=== PATIENT | male | born 1950 | race Caucasian/White ===

== ENCOUNTER → 2016-07-12 | Outpatient (CLI) | payer BC | END | disposition home or self-care (01) | LOC: LABWHC1 09:39 | PROVIDERS: ATTEND Urology | DX: R97.20 Elevated prostate specific antigen [PSA] (principal) | CPT/HCPCS: 36415; 84153 ==

== ENCOUNTER 2016-09-20 18:04 | Inpatient (IN) | payer BC ==
[2016-09-20 18:26] LABS: Glucose,Whole Blood 81 mg/dL (75-99)
[2016-09-20] MEDS ORDERED: SODIUM CHLORIDE 0.9% 1,000 ML IV STA (18:26)
--- NOTE | 2016-09-20 18:34 | ED ---
Neuro HPI - General Chief Complaint: Neuro Symptoms/Deficit Stated Complaint: Lt side numbness head to foot Time Seen by Provider: 09/20/16 18:21 Source: patient Mode of arrival: wheelchair Limitations: no limitations - History of Present Illness Is the patient presenting with stroke symptoms?: No Initial Comments: This 66-year-old white male presents with a complaint of having some left sided numbness. This apparently started just prior to arrival. He states that it was primarily into his left face as well as left arm. He may have felt that in his left foot at one point. He states that his left arm and left foot numbness has resolved at this point but he is still having some left facial numbness. There is no weakness or facial droop. He denies any previous similar type incidents. He denies any injuries or trauma to his head. He also apparently had some slight visual abnormality on his peripheral vision of his left eye that has subsequently resolved. He denies any other visual complaints. He denies any problems with coordination or with speech. He is able to ambulate to the ER without any difficulties. This apparently occurred while at home when trying to glue his [employer] [place]. No other complaints or modifying factors. - Related Data Home Medications: Home Medications Medication Instructions Recorded Confirmed Cholecalciferol [Vitamin D3] 1,000 unit PO BID 09/29/15 09/20/16 Cyanocobalamin [Vitamin B-12] 500 mcg PO DAILY 09/29/15 09/20/16 Docusate [Colace] 100 mg PO HS 09/29/15 09/20/16 Glucosamine Sulfate 500 mg PO BID 09/29/15 09/20/16 Multivitamins, Thera [Multivitamin] 1 tab PO DAILY 09/29/15 09/20/16 Psyllium Husk [Konsyl] 1.04 gm PO DAILY 09/29/15 09/20/16 Ranitidine HCl [Zantac] 150 mg PO BID 09/29/15 09/20/16 Saw [place] 500 mg PO HS 09/29/15 09/20/16 Silodosin [Rapaflo] 8 mg PO HS 09/29/15 09/20/16 Tumeric Extract 1 tab PO HS 09/29/15 09/20/16 Vitamin A 10,000 unit PO DAILY 09/29/15 09/20/16 L.acidoph,Paracasei, B.lactis 1 cap PO DAILY 09/20/16 09/20/16 [Probiotic] Allergies/Adverse Reactions: Allergies Allergy/AdvReac Type Severity Reaction Status Date / Time omeprazole [From Prilosec] Allergy Rash/Hives Verified 09/20/16 19:01 omeprazole magnesium Allergy Rash/Hives Verified 09/20/16 19:01 [From Prilosec] Review of Systems ROS Statement: Those systems with pertinent positive or pertinent negative responses have been documented in the HPI. ROS Other: All systems not noted in ROS Statement are negative. General Exam - General Exam Comments Initial Comments: GENERAL: The patient is well nourished and well hydrated. VITAL SIGNS: Heart rate, blood pressure, respiratory rate reviewed as recorded in nurse's notes. EYES: Pupils are round and reactive. Extraocular movements are intact. No conjunctival / lid redness or swelling. ENT: No external evidence of injury, swelling, or ecchymosis. Airway is patent. Throat is clear. NECK: Nontender. No swelling or evidence of injury. No subcutaneous emphysema. Trachea is midline. No thyroid mass. HEART: Regular rate and rhythm. Good peripheral pulses. LUNGS/CHEST: Breath sounds clear and equal bilaterally. No rales, rhonchi, or wheezes. No ecchymosis, subcutaneous emphysema, or tenderness. ABDOMEN: Abdomen soft without tenderness. No palpable masses or organomegaly. No peritoneal signs. No abdominal wall swelling or ecchymosis. EXTREMITIES: No extremity tenderness. Normal muscle tone and function. No thoracolumbar tenderness. NEUROLOGIC: There is subjective numbness noted to his left face. Strength is intact bilaterally. Cranial nerve exam reveals face is symmetrical, tongue is midline, speech is clear. SKIN: No abrasions or ecchymosis is noted. No induration or masses noted. PSYCHIATRIC: Alert and oriented. Appropriate behavior and judgment. Limitations: no limitations Stroke MDM - Lab Data Result diagrams: 09/20/16 18:20 09/20/16 18:20 Lab Results 09/20/16 09/20/16 09/20/16 Range/Units 18:19 18:20 18:20 WBC 8.7 (3.8-10.6) k/uL RBC 5.37 (4.30-5.90) m/uL Hgb 16.2 (13.0-17.5) gm/dL Hct 48.1 (39.0-53.0) % MCV 89.7 (80.0-100.0) fL MCH 30.1 (25.0-35.0) pg MCHC 33.6 (31.0-37.0) g/dL RDW 13.6 (11.5-15.5) % Plt Count 241 (150-450) k/uL Neutrophils % 71 % Lymphocytes % 20 % Monocytes % 5 % Eosinophils % 1 % Basophils % 1 % Neutrophils # 6.2 (1.3-7.7) k/uL Lymphocytes # 1.7 (1.0-4.8) k/uL Monocytes # 0.4 (0-1.0) k/uL Eosinophils # 0.1 (0-0.7) k/uL Basophils # 0.1 (0-0.2) k/uL PT (9.0-12.0) sec INR (<1.1) APTT (22.0-30.0) sec Sodium (137-145) mmol/L Potassium (3.5-5.1) mmol/L Chloride (98-107) mmol/L Carbon Dioxide (22-30) mmol/L Anion Gap mmol/L BUN (9-20) mg/dL Creatinine (0.66-1.25) mg/dL Est GFR (MDRD) Af Amer (>60 ml/min/1.73 sqM) Est GFR (MDRD) Non-Af (>60 ml/min/1.73 sqM) Glucose (74-99) mg/dL POC Glucose (mg/dL) 81 (75-99) mg/dL POC Glu Planner Scheduler ID Tigre Matias Calcium (8.4-10.2) mg/dL Total Bilirubin (0.2-1.3) mg/dL AST (17-59) U/L ALT (21-72) U/L Alkaline Phosphatase (38-126) U/L Total Creatine Kinase 88 (55-170) U/L CK-MB (CK-2) 2.2 (0.0-2.4) ng/mL CK-MB (CK-2) Rel Index 2.5 Troponin I <0.012 (0.000-0.034) ng/mL Total Protein (6.3-8.2) g/dL Albumin (3.5-5.0) g/dL 09/20/16 09/20/16 Range/Units 18:20 18:20 WBC (3.8-10.6) k/uL RBC (4.30-5.90) m/uL Hgb (13.0-17.5) gm/dL Hct (39.0-53.0) % MCV (80.0-100.0) fL MCH (25.0-35.0) pg MCHC (31.0-37.0) g/dL RDW (11.5-15.5) % Plt Count (150-450) k/uL Neutrophils % % Lymphocytes % % Monocytes % % Eosinophils % % Basophils % % Neutrophils # (1.3-7.7) k/uL Lymphocytes # (1.0-4.8) k/uL Monocytes # (0-1.0) k/uL Eosinophils # (0-0.7) k/uL Basophils # (0-0.2) k/uL PT 10.4 (9.0-12.0) sec INR 1.0 (<1.1) APTT 23.9 (22.0-30.0) sec Sodium 145 (137-145) mmol/L Potassium 4.3 (3.5-5.1) mmol/L Chloride 106 (98-107) mmol/L Carbon Dioxide 26 (22-30) mmol/L Anion Gap 13 mmol/L BUN 19 (9-20) mg/dL Creatinine 1.00 (0.66-1.25) mg/dL Est GFR (MDRD) Af Amer >60 (>60 ml/min/1.73 sqM) Est GFR (MDRD) Non-Af >60 (>60 ml/min/1.73 sqM) Glucose 80 (74-99) mg/dL POC Glucose (mg/dL) (75-99) mg/dL POC Glu Planner Scheduler ID Calcium 10.2 (8.4-10.2) mg/dL Total Bilirubin 0.5 (0.2-1.3) mg/dL AST 33 (17-59) U/L ALT 38 (21-72) U/L Alkaline Phosphatase 59 (38-126) U/L Total Creatine Kinase (55-170) U/L CK-MB (CK-2) (0.0-2.4) ng/mL CK-MB (CK-2) Rel Index Troponin I (0.000-0.034) ng/mL Total Protein 8.0 (6.3-8.2) g/dL Albumin 4.6 (3.5-5.0) g/dL - Medical Decision Making The patient was seen and examined. All diagnostics were reviewed. EKG shows a normal sinus rhythm at a rate of 81. There is some slight T-wave inversions in lead 3 and aVF. The ME interval is 158, QS duration 76, and the QTc interval is 413. The patient had a computed tomography scan of the brain which did not show any acute processes. The laboratory was unremarkable. He states that his numbness has decreased on his face on recheck. He still has some slight tongue numbness. Overall, the possibility of a TIA certainly is likely. Is felt that he benefit from admission to the hospital for further treatment. He is agreeable. Case will be discussed with internal medicine shortly. Past Medical History Past Medical History: Prostate Disorder, Supraventricular Tachycardia (SVT) Additional Past Medical History / Comment(s): back pain History of Any Multi-Drug Resistant Organisms: None Reported Past Surgical History: Ablation, Appendectomy, Cholecystectomy, Hernia Repair Past Psychological History: No Psychological Hx Reported Smoking Status: Former smoker Past Alcohol Use History: None Reported Past Drug Use History: None Reported Course Vital Signs 09/20/16 09/20/16 09/20/16 18:07 18:20 18:35 Temperature 98.4 F Pulse Rate 83 86 69 Respiratory 20 18 20 Rate Blood Pressure 146/85 151/90 138/92 O2 Sat by Pulse 99 98 97 Oximetry 09/20/16 09/20/16 18:50 19:05 Temperature Pulse Rate 82 98 Respiratory 16 18 Rate Blood Pressure 140/91 155/94 O2 Sat by Pulse 97 98 Oximetry Disposition Clinical Impression: TIA (transient ischemic attack), Left sided numbness Disposition: ADMITTED IP TO THIS [facility] Condition: Good Time of Disposition: 20:04 Decision Date: 09/20/16 Decision Time: 20:04
[2016-09-20 18:43] LABS: Basophils # (A) 0.1 k/uL (0-0.2); Basophils % (A) 1 %; CH 30.1; CHCM 33.7; Eosinophils # (A) 0.1 k/uL (0-0.7); Eosinophils % (A) 1 %; HCT 48.1 % (39.0-53.0); HDW 2.88; HGB 16.2 gm/dL (13.0-17.5); Luc # (Auto) 0.23; Luc % (Auto) 3; Lymphocytes # (A) 1.7 k/uL (1.0-4.8); Lymphocytes % (A) 20 %; MCH 30.1 pg (25.0-35.0); MCHC 33.6 g/dL (31.0-37.0); MCV 89.7 fL (80.0-100.0); Mean Platelet Volume 7.4; Monocytes # (A) 0.4 k/uL (0-1.0); Monocytes % (A) 5 %; Neutrophils # (A) 6.2 k/uL (1.3-7.7); Neutrophils % (A) 71 %; RBC 5.37 m/uL (4.30-5.90); RDW 13.6 % (11.5-15.5); WBC 8.7 k/uL (3.8-10.6); WBC (Perox) 8.18
[2016-09-20 18:49] LABS: Partial Thromboplastin Time 23.9 sec (22.0-30.0); Prothrombin Time 10.4 sec (9.0-12.0)
[2016-09-20 18:54] LABS: ALT 38 U/L (21-72); AST 33 U/L (17-59); Alkaline Phosphatase 59 U/L (38-126); Anion Gap 13 mmol/L; Blood Urea Nitrogen 19 mg/dL (9-20); Calcium 10.2 mg/dL (8.4-10.2); Carbon Dioxide 26 mmol/L (22-30); Chloride 106 mmol/L (98-107); Glucose 80 mg/dL (74-99); Non-African American GFR(MDRD) >60 (>60 ml/min/1.73 sqM); Potassium 4.3 mmol/L (3.5-5.1); Sodium 145 mmol/L (137-145); Total Bilirubin 0.5 mg/dL (0.2-1.3)
[2016-09-20 18:59] LABS: Creatine Kinase 88 U/L (55-170)
[2016-09-20 19:13] LABS: Creatine Kinase MB 2.2 ng/mL (0.0-2.4); Troponin I <0.012 ng/mL (0.000-0.034)
--- NOTE | 2016-09-20 19:20 | CT ---
EXAMINATION TYPE: CT brain wo con DATE OF EXAM: 09/20/2016 COMPARISON: NONE INDICATION: Left sided facial abd body numbness DLP: 1180 mGycm, Automated exposure control for dose reduction was used. CONTRAST: None CT of the brain is performed utilizing 3 mm thick sections through the posterior fossa and 3 mm thick sections through the remaining calvarium. Study is performed within 24 hours of arrival to the hosp ital. No abnormal hyperdensity is present to suggest an acute intracranial hemorrhage. No mass lesion is evident. No acute infarcts are evident. Ventricles and sulci are appropriate for the patient age. Paranasal sinuses and mastoid air cells within the [id number] are clear. IMPRESSIONS: 1. Normal CT Brain
[2016-09-20] MEDS ORDERED: ASPIRIN 81 MG CHEW PO STA (19:50)
[2016-09-20] MEDS ORDERED: NON-FORMULARY DRUG (Glucosamine Sulfate 500 MG) PO SCH (21:00)
[2016-09-20] MEDS ORDERED: TUMERIC EXTRACT PO SCH (21:00)
[2016-09-20] MEDS ORDERED: DOCUSATE 100 MG CAP PO SCH (21:00)
[2016-09-20] MEDS ORDERED: NON-FORMULARY DRUG (Saw Palmetto [Saw Palmetto] 500 MG) PO SCH (21:00)
[2016-09-20] MEDS ORDERED: TAMSULOSIN 0.4 MG CAP.ER.24H PO SCH (21:00)
[2016-09-20 21:43] VITALS: BMI 28.0
[2016-09-20] MEDS: CHOLECALCIFEROL 1,000 UNIT TAB PO SCH (21:49)
[2016-09-20] MEDS: FAMOTIDINE 20 MG/2 ML VIAL IV SCH (22:01)
[2016-09-21 06:54] LABS: Cholesterol 170 mg/dL (<200); HDL Cholesterol 51 mg/dL (40-60); Triglycerides 102 mg/dL (<150)
[2016-09-21] MEDS ORDERED: PSYLLIUM HUSK 100% 6 GM PACKET PO SCH (09:00)
[2016-09-21] MEDS ORDERED: LACTOBACILLUS ACIDOPH & BULGAR 1 EACH PACKET PO SCH (09:00)
[2016-09-21] MEDS ORDERED: ENOXAPARIN 40 MG/0.4 ML SYRINGE SQ SCH (09:00)
[2016-09-21] MEDS ORDERED: CYANOCOBALAMIN 500 MCG TAB PO SCH (09:00)
[2016-09-21] MEDS ORDERED: VITAMIN A 10,000 UNIT CAPSULE PO SCH (09:00)
--- NOTE | 2016-09-21 09:15 | US ---
EXAMINATION TYPE: US carotid duplex BILAT DATE OF EXAM: 09/21/2016 COMPARISON: NONE CLINICAL HISTORY: Stenosis. Patient reports numbness of face and left hand EXAM MEASUREMENTS: RIGHT: Peak Systolic Velocity (PSV) cm/sec ----- Right CCA: 79.0 ----- Right ICA: 112.9 ----- Right ECA: 99.0 ICA/CCA ratio: 1.4 RIGHT: End Diastole cm/sec ----- Right CCA: 21.9 ----- Right ICA: 20.8 ----- Right ECA: 10.3 LEFT: Peak Systolic Velocity (PSV) cm/sec ----- Left CCA: 99.1 ----- Left ICA: 84.9 ----- Left ECA: 95.3 ICA/CCA ratio: 0.9 LEFT: End Diastole cm/sec ----- Left CCA: 37.0 ----- Left ICA: 33.1 ----- Left ECA: 0 VERTEBRALS (direction of flow): Right Vertebral: Antegrade Left Vertebral: Antegrade No atherosclerotic changes noted No hemodynamic stenosis Normal (no stenosis)=ICA PSV < 125 cm/s: ratio < 2.0: ICA EDV<40 cm/s. IMPRESSION: Some minimal turbulence flow and mild intimal thickening slightly greater on the left. N o significant flow-limiting stenosis is evident. Criteria for Assigning % of Stenosis / Diameter reduction (Estimation based on the indirect measurements of the internal carotid artery velocities (ICA PSV). 1. Normal (no stenosis)=ICA PSV < 125 cm/s: ratio < 2.0: ICA EDV<40 cm/s. 2. Less than 50% stenosis=ICA PSV < 125 cm/s: ratio < 2.0: ICA EDV<40 cm/s. 3. 50 to 69% stenosis=ICA PSV of 125 to 230 cm/s: ration 2.0 ? 4.0: ICA EDV 40-100 cm/s. 4. Greater than 70% stenosis to near occlusion= ICA PSV > 230 cm/s: ratio > 4.0: ICA EDV > 100 cm/s. 5. Near occlusion= ICA PSV velocities may be low or undetectable: variable ratio and ICA EDV. 6. Total occlusion=unable to detect flow.
[2016-09-21 09:30] VITALS: RESP 16
[2016-09-21] MEDS: CHOLECALCIFEROL 1,000 UNIT TAB PO SCH (10:03)
[2016-09-21] MEDS: FAMOTIDINE 20 MG/2 ML VIAL IV SCH (10:04)
--- NOTE | 2016-09-21 10:22 | ECHOF ---
Referral Reason:Thrombus MEASUREMENTS -------- HEIGHT: 182.9 cm WEIGHT: 93.0 kg BP: 118/76 RVIDd: 3.3 cm (< 3.3) IVSd: 1.2 cm (0.6 - 1.1) LVIDd: 4.5 cm (3.9 - 5.3) LVPWd: 1.1 cm (0.6 - 1.1) IVSs: 1.7 cm LVIDs: 2.7 cm LVPWs: 1.6 cm LA Diam: 3.6 cm (2.7 - 3.8) LAESV Index (A-L): 21.56 ml/m Ao Diam: 3.5 cm (2.0 - 3.7) AV Cusp: 2.5 cm (1.5 - 2.6) MV EXCURSION: 13.015 mm (> 18.000) MV EF SLOPE: 47 mm/s (70 - 150) EPSS: 0.6 cm MV E Leo: 0.90 m/s MV DecT: 181 ms MV A Leo: 0.74 m/s MV E/A Ratio: 1.22 RAP: 5.00 mmHg RVSP: 37.78 mmHg FINDINGS -------- Sinus rhythm. This was a technically good study. The left ventricular size is normal. There is borderline concentric left ventricular hypertrophy. Overall left ventricular systolic function is normal with, an EF between 60 - 65 %. The right ventricle is mildly enlarged. Normal LA size by volume 22+/-6 ml/m2. The right atrium is normal in size. The aortic valve is trileaflet, and appears structurally normal. No aortic stenosis or regurgitation. The mitral valve is normal. Mild tricuspid regurgitation present. There is mild pulmonary hypertension. The right ventricular systolic pressure, as measured by Doppler, is 37.78mmHg. Trace/mild (physiologic) pulmonic regurgitation. The aortic root, ascending aorta and aortic arch are normal. Normal inferior vena cava with normal inspiratory collapse consistent with estimated right atrial pressure of 5 mmHg. The pericardium is normal. CONCLUSIONS -------- 1. Sinus rhythm. 2. The mitral valve is normal. 3. Mild tricuspid regurgitation present. 4. There is mild pulmonary hypertension. 5. The right ventricular systolic pressure, as measured by Doppler, is 37.78mmHg. 6. Trace/mild (physiologic) pulmonic regurgitation. 7. The aortic root, ascending aorta and aortic arch are normal. 8. Normal inferior vena cava with normal inspiratory collapse consistent with estimated right atrial pressure of 5 mmHg. 9. The pericardium is normal. 10. This was a technically good study. 11. The left ventricular size is normal. 12. There is borderline concentric left ventricular hypertrophy. 13. Overall left ventricular systolic function is normal with, an EF between 60 - 65 %. 14. The right ventricle is mildly enlarged. 15. Normal LA size by volume 22+/-6 ml/m2. 16. The right atrium is normal in size. 17. The aortic valve is trileaflet, and appears structurally normal. No aortic stenosis or regurgitation. PHARMACY BENEFIT MANAGER: Karon Arce RDCS
[2016-09-21] MEDS ORDERED: MULTIVITAMINS, THERA 1 EACH TAB PO SCH (12:00)
[2016-09-21 15:45] VITALS: TEMP 98.8
--- NOTE | 2016-09-21 15:52 | P.HPIM ---
History of Present Illness H&P Date: 09/21/16 (Discharge summary as well) 66-year-old gentleman with no previous history of strokes or TIAs comes in to the hospital complains of left-sided facial numbness and left hand numbness that lasted less than 2 hours. Patient states that he did not notice any weakness during the episode. Patient came in to the emergency room was driven by his was evaluated and admitted to the hospital. Patient received a full dose aspirin at that time Patient states he is a lifelong nonsmoker denies having any significant family history of strokes During my evaluation patient states that he has not had any recurrence of symptoms since then. No aphasia no motor weakness has been reported by the patient or his EKG did not reveal any atrial fibrillation Carotid study did not reveal significant stenosis CT of the head was negative for any acute abnormalities Review of Systems All systems: negative (Noted in HPI) Past Medical History Past Medical History: Prostate Disorder, Supraventricular Tachycardia (SVT) Additional Past Medical History / Comment(s): back pain History of Any Multi-Drug Resistant Organisms: None Reported Past Surgical History: Ablation, Appendectomy, Cholecystectomy, Hernia Repair Additional Past Surgical History / Comment(s): leg surgery for broken leg. Past Psychological History: No Psychological Hx Reported Smoking Status: Former smoker Past Alcohol Use History: None Reported Past Drug Use History: None Reported - Past Family History Mother Family Medical History: Dementia Father Family Medical History: Osteoarthritis (OA) Additional Family Medical History / Comment(s): hepatitis C, diverticulitis Brother(s) Family Medical History: Cancer, Coronary Artery Disease (CAD), Respiratory Disorder Additional Family Medical History / Comment(s): CABG, chemical pneumonia, glioblastoma Medications and Allergies Home Medications Medication Instructions Recorded Confirmed Type Cholecalciferol [Vitamin D3] 1,000 unit PO BID 09/29/15 09/20/16 History Cyanocobalamin [Vitamin B-12] 500 mcg PO DAILY 09/29/15 09/20/16 History Docusate [Colace] 100 mg PO HS 09/29/15 09/20/16 History Glucosamine Sulfate 500 mg PO BID 09/29/15 09/20/16 History Multivitamins, Thera [Multivitamin 1 tab PO DAILY 09/29/15 09/20/16 History (formulary)] Psyllium Husk [Konsyl] 1.04 gm PO DAILY 09/29/15 09/20/16 History Ranitidine HCl [Zantac] 150 mg PO BID 09/29/15 09/20/16 History Saw [place] 500 mg PO HS 09/29/15 09/20/16 History Silodosin [Rapaflo] 8 mg PO HS 09/29/15 09/20/16 History Tumeric Extract 1 tab PO HS 09/29/15 09/20/16 History Vitamin A 10,000 unit PO DAILY 09/29/15 09/20/16 History L.acidoph,Paracasei, B.lactis 1 cap PO DAILY 09/20/16 09/20/16 History [Probiotic] Allergies Allergy/AdvReac Type Severity Reaction Status Date / Time omeprazole [From [facility]] Allergy Rash/Hives Verified 09/20/16 19:01 omeprazole magnesium Allergy Rash/Hives Verified 09/20/16 19:01 [From [facility]] Physical Exam Vitals: Vital Signs Temp Pulse Pulse Resp BP BP Pulse Ox 09/21/16 15:13 98.8 F 77 16 134/83 96 09/21/16 11:13 98.7 F 72 16 121/79 97 09/21/16 09:13 97.0 F L 76 16 131/74 96 09/21/16 04:00 98.2 F 65 14 118/76 95 09/20/16 23:42 74 09/20/16 23:40 74 14 135/77 97 09/20/16 21:24 90 16 09/20/16 21:13 97.8 F 90 16 152/98 96 09/20/16 20:35 75 18 145/92 98 09/20/16 20:05 69 16 145/86 98 09/20/16 19:35 92 18 145/83 97 09/20/16 19:20 75 18 144/89 98 09/20/16 19:05 98 18 155/94 98 09/20/16 18:50 82 16 140/91 97 09/20/16 18:35 69 20 138/92 97 09/20/16 18:20 86 18 151/90 98 09/20/16 18:07 98.4 F 83 20 146/85 99 Intake and Output 09/21/16 09/21/16 09/21/16 06:59 14:59 22:59 Intake Total 900 0 Balance 900 0 Intake: Intake, IV Titration 900 Amount Sodium Chloride 0.9% 1, 900 000 ml @ 100 mls/hr IV . Q10H STA Rx#:[id number] Oral 0 Other: # Voids 4 1 1 # Bowel Movements 1 1 Weight 93 kg Physical exam Gen. appearance oriented 3 in no distress Neck is supple no JVD Lungs good air entry clear to auscultation no rhonchi or wheezing Heart S1-S2 heard regular rate and rhythm no murmurs appreciated Abdomen is soft nontender no organomegaly bowel sounds are intact Neurologically cranial nerves II-12 grossly intact no focal motor or sensory deficits noted no dysdiadochokinesia noted. 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 Patient can follow-up with urology on an outpatient basis Patient appears to have a recurrent episode of symptoms we'll need to workup including Holter monitoring. This was discussed with the patient and the family were in agreement we'll discharge the patient home in a stable condition medications at her were aspirin and atorvastatin
--- NOTE | 2016-09-21 17:06 | P.CNNES ---
History of Present Illness Consult date: 09/21/16 Reason for Consult: Patient admitted with left-sided numbness lasting several hours. History of Present Illness: This patient is a 66-year-old right-handed white male who was in his usual state of health until 6 PM yesterday evening. He was at home and apparently had a sudden onset of left-sided numbness affecting his left face and left arm. Apparently he also noted numbness involving the left side of his tongue and lip area. Symptoms came on suddenly and persisted for at least 2 hours. His was concerned and decided to bring him to the emergency room at [facility] for further evaluation. Patient did not experience any facial droop or slurring of his speech during this episode. Patient has a history of supraventricular tachycardia but did not find that his heart was racing at any time during this episode. The patient was seen in the emergency room by Dr. Lentz. The patient was sent for a computed tomography scan of the brain which was reported entirely normal. He separately underwent a carotid Doppler ultrasound today which revealed minimal thickening with no evidence of any flow limiting stenosis in the carotid arteries. On further questioning the patient states his symptoms have completely resolved. They lasted for approximately 2 hours in duration and this morning when he awoke they were gone. He denies any previous history of TIA or stroke. As mentioned he does have a history of supraventricular tachycardia and does see his admissions supervisor if necessary for further treatment. He has not been seen by cardiology since 2010 for this condition. The patient has not been taking any aspirin at home on any regular basis. Given his current history and exam findings this suggests a right hemispheric TIA. We would recommend that he should be on aspirin therapy daily for secondary stroke prevention. The patient underwent a serum cholesterol on admission and it was noted to be 170. He denies any episode of blurred vision or loss of vision during this episode. He did not experience any weakness in the extremities. As noted his speech has remained clear throughout the entire episode. The patient is now admitted and neurology has been consulted for further evaluation and recommendations. Review of Systems Constitutional: Denies chills, Denies fever Eyes: denies blurred vision, denies pain Ears, nose, mouth and throat: Denies headache, Denies sore throat Cardiovascular: Denies chest pain, Denies shortness of breath Respiratory: Denies cough Gastrointestinal: Denies abdominal pain, Denies diarrhea, Denies nausea, Denies vomiting Musculoskeletal: Denies myalgias Integumentary: Denies pruritus, Denies rash Neurological: Reports paresthesias, Denies numbness, Denies weakness Psychiatric: Denies anxiety, Denies depression Endocrine: Denies fatigue, Denies weight change Past Medical History Past Medical History: Prostate Disorder, Supraventricular Tachycardia (SVT) Additional Past Medical History / Comment(s): back pain History of Any Multi-Drug Resistant Organisms: None Reported Past Surgical History: Ablation, Appendectomy, Cholecystectomy, Hernia Repair Additional Past Surgical History / Comment(s): leg surgery for broken leg. Past Psychological History: No Psychological Hx Reported Smoking Status: Former smoker Past Alcohol Use History: None Reported Past Drug Use History: None Reported - Past Family History Mother Family Medical History: Dementia Father Family Medical History: Osteoarthritis (OA) Additional Family Medical History / Comment(s): hepatitis C, diverticulitis Brother(s) Family Medical History: Cancer, Coronary Artery Disease (CAD), Respiratory Disorder Additional Family Medical History / Comment(s): CABG, chemical pneumonia, glioblastoma Medications and Allergies Home Medications Medication Instructions Recorded Confirmed Type Cholecalciferol [Vitamin D3] 1,000 unit PO BID 09/29/15 09/20/16 History Cyanocobalamin [Vitamin B-12] 500 mcg PO DAILY 09/29/15 09/20/16 History Docusate [Colace] 100 mg PO HS 09/29/15 09/20/16 History Glucosamine Sulfate 500 mg PO BID 09/29/15 09/20/16 History Multivitamins, Thera [Multivitamin 1 tab PO DAILY 09/29/15 09/20/16 History (formulary)] Psyllium Husk [Konsyl] 1.04 gm PO DAILY 09/29/15 09/20/16 History Ranitidine HCl [Zantac] 150 mg PO BID 09/29/15 09/20/16 History Saw Clawson 500 mg PO HS 09/29/15 09/20/16 History Silodosin [Rapaflo] 8 mg PO HS 09/29/15 09/20/16 History Tumeric Extract 1 tab PO HS 09/29/15 09/20/16 History Vitamin A 10,000 unit PO DAILY 09/29/15 09/20/16 History L.acidoph,Paracasei, B.lactis 1 cap PO DAILY 09/20/16 09/20/16 History [Probiotic] Allergies Allergy/AdvReac Type Severity Reaction Status Date / Time omeprazole [From Prilosec] Allergy Rash/Hives Verified 09/20/16 19:01 omeprazole magnesium Allergy Rash/Hives Verified 09/20/16 19:01 [From Prilosec] Physical Examination - Vital Signs Vital Signs: Vital Signs Temp Pulse Pulse Resp BP BP Pulse Ox 09/21/16 15:13 98.8 F 77 16 134/83 96 09/21/16 11:13 98.7 F 72 16 121/79 97 09/21/16 09:13 97.0 F L 76 16 131/74 96 09/21/16 04:00 98.2 F 65 14 118/76 95 09/20/16 23:42 74 09/20/16 23:40 74 14 135/77 97 09/20/16 21:24 90 16 09/20/16 21:13 97.8 F 90 16 152/98 96 09/20/16 20:35 75 18 145/92 98 09/20/16 20:05 69 16 145/86 98 09/20/16 19:35 92 18 145/83 97 09/20/16 19:20 75 18 144/89 98 09/20/16 19:05 98 18 155/94 98 09/20/16 18:50 82 16 140/91 97 09/20/16 18:35 69 20 138/92 97 09/20/16 18:20 86 18 151/90 98 09/20/16 18:07 98.4 F 83 20 146/85 99 Intake and Output 09/21/16 09/21/16 09/21/16 06:59 14:59 22:59 Intake Total 900 0 Balance 900 0 Intake: Intake, IV Titration 900 Amount Sodium Chloride 0.9% 1, 900 000 ml @ 100 mls/hr IV . Q10H STA Rx#:[id number] Oral 0 Other: # Voids 4 1 1 # Bowel Movements 1 1 Weight 93 kg - Constitutional General appearance: average body habitus, cooperative - EENT EENT: PERRL, mucous membranes moist - Respiratory Respiratory: lungs clear, normal breath sounds - Cardiovascular Cardiovascular: regular rate, normal S1, normal S2 Extremities: no peripheral edema bilaterally - Gastrointestinal Gastrointestinal: normoactive bowel sounds - Integumentary Integumentary: normal - Neurologic Cranial nerve examination: PERRL, EOMI, VFF, V1/V2/V3 grossly intact, face symmetric, tongue midline, intact gag reflex, intact corneal reflex, normal palatal elevation Speech examination: intact Sensorimotor examination: intact Detailed motor examination: grossly full strength in all extremities Motor examination - right side: 5/5: biceps, triceps, wrist flexion, wrist extension, continuous vulcanizing machine operator, hip flexors, knee extensors, dorsiflexion, toe extension (EHL) , plantarflexion Motor examination - left side: 5/5: biceps, triceps, wrist flexion, wrist extension, continuous vulcanizing machine operator, hip flexors, knee extensors, dorsiflexion, toe extension (EHL) , plantarflexion Detailed sensory examination: intact Reflex and gait examination: intact Reflexes: 1+: ankle, bicep, knee, tricep - Musculoskeletal Musculoskeletal: no pain - Psychiatric Psychiatric: mood/affect appropriate, cooperative Results - Laboratory Findings CBC and BMP: 09/20/16 18:20 09/20/16 18:20 Assessment and Plan (1) TIA (transient ischemic attack) Status: Acute Code(s): G45.9 - TRANSIENT CEREBRAL ISCHEMIC ATTACK, UNSPECIFIED (2) Left sided numbness Status: Acute Code(s): R20.0 - ANESTHESIA OF SKIN (3) Supraventricular tachycardia Status: Acute Code(s): I47.1 - SUPRAVENTRICULAR TACHYCARDIA Plan: This patient is a 66-year-old right-handed white male who was in his usual state of health until yesterday evening. Patient had a transient episode of left-sided paresthesia and numbness involving the left face and left arm. He also noted some numbness in the tongue region and lip region on the left side. The entire episode lasted for about 2 hours and completely resolved yesterday. Apparently he was brought into the emergency room and the symptoms were slowly subsiding. He was seen in the ER by Dr. Lentz who ordered a computed tomography scan of the brain. CAT scan of brain was normal with no evidence of any acute stroke. His NIH stroke scale was noted at that time to be 1.0. Patient was admitted for full stroke evaluation. He underwent a carotid Doppler ultrasound which is negative for any significant carotid artery stenosis. He underwent an echocardiogram of the heart which was also normal. The patient had not been taking any aspirin on any regular basis prior to this event. His clinical history and exam findings are consistent with right hemispheric TIA. We are recommending that he be placed on aspirin 325 mg daily for secondary stroke prevention. We did recommend that he follow up in the outpatient neurology clinic in 3-4 weeks. His neurological exam today is entirely normal. He will inform us if there is any recurrent episode of numbness or weakness following discharge. He is to follow-up with his primary care physician in one week. Overall he seems to be doing well and has a normal neurological exam. As instructed he should follow-up in the neurology clinic in 3-4 weeks for further reevaluation and recommendations at that time. His overall prognosis at this time remains fair. Time with Patient: Greater than 30
[2016-09-21 17:58] VITALS: BP 135/76; PULSE 76
[2016-09-21] MEDS ORDERED: ASPIRIN 325 MG TAB PO SCH (20:15)
--- NOTE | 2016-09-25 08:02 | CDI ---
In responding to this query, please exercise your independent professional judgment. The [facility] Coding Staff and Clinical Documentation Specialists appreciate your assistance in clarifying documentation, maintaining compliance with coding guidelines, accurately documenting patients condition and capturing severity of illness. The fact that a question is asked does not imply that any particular answer is desired or expected. Communication forms are a method of clarifying documentation and are not made part of the Legal Health Record. Thank you in advance for your clarification. Last Revision, June 2015 Brayan Crowe [address] [facility] [place] [address] Documentation Clarification Form Date: 09/25/2016 7:44:00 AM From: Dulce Gallegos Admit Date: 09/20/2016 8:13:00 PM Patient Name: Lavell No Visit Number: [id number] Discharge Date: 09/25/16 Dr. Homer Kitchen 66 year old male, presents with left sided numbness lasting for several hours. Hx of supraventricular tachycardia. CT of brain normal. Carotid doppler US revealed minimal thickening with no evidence of any flow limiting stenosis in carotid arteries. No hx of TIA/CVA. Discharged home on baby aspirin and Atrovastion 40 mg. In your short stay note you stated acute right MCA territory CVA that is transient. The neurologist stated TIA. In your professional opinion, please specify the further the cause of the left sided numbness: Transient ischemic attack Cerbrovascular accident Other (please specify): Etiology unknown or Unable to determine Please document addendum in your HP/DS in order to capture severity of illness and risk of mortality. FYI: Press F11 to launch patient chart Place X here if this finding has no clinical significance, is not applicable or if you are not able to provide any additional documentation. MADISON Barriga, CCS, [facility] Certified I-10 Cashier General/[place]/Cashier General II If you have any questions or concerns please contact Kassy Brown, Field Cane Scale Clerk, Brayan Crowe @ [phone] [facility]
== END 2016-09-21 18:34 | disposition home or self-care (01) | DRG 65 ==
LOC: EC 18:04 → 6SEL 20:13
PROVIDERS: ADMIT Internal Medicine; ATTEND Internal Medicine
DX: I63.511 Cerebral infarction due to unspecified occlusion or stenosis of right middle cerebral artery (principal); I47.1 Supraventricular tachycardia; K52.9 Noninfective gastroenteritis and colitis, unspecified; Z87.891 Personal history of nicotine dependence; Z90.49 Acquired absence of other specified parts of digestive tract; N40.0 Benign prostatic hyperplasia without lower urinary tract symptoms; M54.9 Dorsalgia, unspecified; Z79.899 Other long term (current) drug therapy; Z88.8 Allergy status to other drugs, medicaments and biological substances
CPT/HCPCS: 36415; 70450; 80053; 80061; 82550; 82553; 84484; 85025; 85610; 85730; 93005; 93306; 93880; 96360; 96361; 99285

== ENCOUNTER → 2018-02-08 | Outpatient (CLI) | payer MEDICARE | END | disposition home or self-care (01) | LOC: LABWHC1 15:09 | PROVIDERS: ATTEND Urology | DX: C61 Malignant neoplasm of prostate (principal) | CPT/HCPCS: 36415; 84153 ==

== ENCOUNTER 2018-02-14 06:25 | Day surgery (SDC) | payer MEDICARE ==
[2018-02-07 09:05] VITALS: BMI 29.2
--- NOTE | 2018-02-13 16:35 | P.GSHP ---
History of Present Illness H&P Date: 02/13/18 Chief Complaint: Right inguinal hernia 67-year-old male seen in the office about one month ago. Patient has complaints of a bulge that is increasing in size in the right groin. Mild pain there. History of previous left hernia repair as an infant. History of previous umbilical hernia repair as well without mesh. No nausea or vomiting. No change in bowel habits. Past Medical History Past Medical History: CVA/TIA, Prostate Disorder, Supraventricular Tachycardia ( SVT) Additional Past Medical History / Comment(s): R numbness in back and hip area. In August 2016 TIA, did have some weakness at that time. States if he becomes dehydrated has some issues with SVT. Has not had any problems with SVT for 10 years or so. History of Any Multi-Drug Resistant Organisms: None Reported Past Surgical History: Ablation, Appendectomy, Cholecystectomy, Hernia Repair Additional Past Surgical History / Comment(s): Leg surgery for broken leg. L knee arthroscopy. States had infections after two of his surgeries. Past Anesthesia/Blood Transfusion Reactions: No Reported Reaction Smoking Status: Former smoker - Past Family History Mother Family Medical History: Dementia Father Family Medical History: Osteoarthritis (OA) Additional Family Medical History / Comment(s): hepatitis C, diverticulitis Brother(s) Family Medical History: Cancer, Coronary Artery Disease (CAD), Respiratory Disorder Additional Family Medical History / Comment(s): CABG, chemical pneumonia, glioblastoma Medications and Allergies Home Medications Medication Instructions Recorded Confirmed Type Docusate [Colace] 100 mg PO HS 09/29/15 02/07/18 History Glucosamine Sulfate 500 mg PO BID 09/29/15 02/07/18 History Ranitidine HCl [Zantac] 150 mg PO HS 09/29/15 02/07/18 History Tumeric Extract 1 tab PO HS 09/29/15 02/07/18 History L.acidoph,Paracasei, B.lactis 1 cap PO DAILY 09/20/16 02/07/18 History [Probiotic] Aspirin [Adult Low Dose Aspirin EC] 81 mg PO DAILY #30 tablet. 09/21/16 Rx Ciclopirox (Unknown Dose) 1 applicate TOPICAL DAILY 02/07/18 02/07/18 History Magnesium Gluconate [Magonate] 500 mg PO DAILY 02/07/18 02/07/18 History Multi-Enzyme (Unknown Dose) 1 tab PO DAILY 02/07/18 02/07/18 History Tamsulosin [Flomax] 0.4 mg PO HS 02/07/18 02/07/18 History Allergies Allergy/AdvReac Type Severity Reaction Status Date / Time omeprazole [From Prilosec] Allergy Rash/Hives Verified 02/07/18 08:32 omeprazole magnesium Allergy Rash/Hives Verified 02/07/18 08:32 [From Prilosec] Surgical - Exam Physical exam: General: Well-developed, well-nourished HEENT: Normocephalic, sclerae nonicteric Abdomen: Nontender, nondistended, reducible right inguinal hernia Extremities: No edema Neuro: Alert and oriented Assessment and Plan (1) Inguinal hernia Narrative/Plan: Options discussed in detail with the patient. We'll proceed with laparoscopic da Mar assisted repair with mesh. Possible bilateral. Risks of bleeding, infection, recurrence, bladder and bowel injury, numbness, nerve injury, conversion to an open procedure were discussed with the patient. The patient understands and wishes to proceed. Status: Acute Code(s): K40.90 - UNIL INGUINAL HERNIA, W/O OBST OR GANGR, NOT SPCF RECUR SNOMED Code(s): 967631830
[~2018-02-14 06:25] MED LIST: DEXAMETHASONE SOD PHOSPHATE 10 MG/ML 1 ML VIAL IV ONE; HEPARIN SODIUM,PORCINE 5,000 UNIT/ML 1 ML VIAL SQ ONE; HYDROmorphone 0.5 MG/0.5 ML SYRINGE IVP PRN; LIDOCAINE 1% 20 ML VIAL (10MG/ML) FOR IV START INTRADERMA PRN; MIDAZOLAM 2 MG/2 ML VIAL IV PRN; ONDANSETRON 4 MG/2 ML VIAL IVP ONE; SCOPOLAMINE 1.5MG/72HR PATCH TRANSDERM ONE; ceFAZolin IN SWFI 2 GM/20 ML SYRINGE IVP ONE
[2018-02-14] MEDS: LACTATED RINGERS 1,000 ML IV SCH ×2 (07:02→07:05)
[2018-02-14] MEDS ORDERED: ROCURONIUM BROMIDE 10 MG/ML 10 ML VIAL IV ONE (07:58)
[2018-02-14] MEDS ORDERED: fentaNYL (PF) 50 MCG/ML 2 ML AMP ONE (07:58)
[2018-02-14] MEDS ORDERED: GLYCOPYRROLATE 0.2 MG/ML 2 ML VIAL ONE (07:58)
[2018-02-14] MEDS ORDERED: SUCCINYLCHOLINE CHLORIDE 100 MG/5 ML SYR IV ONE (07:58)
[2018-02-14] MEDS ORDERED: PROPOFOL 10 MG/ML 20 ML VIAL IV ONE (07:58)
[2018-02-14] MEDS ORDERED: LIDOCAINE 1% INJ 10MG/ML (20 ML MDV) ONE (07:58)
[2018-02-14] MEDS ORDERED: MIDAZOLAM 2 MG/2 ML VIAL ONE (07:58)
[2018-02-14] MEDS ORDERED: NEOSTIGMINE 1 MG/ML 10 ML VIAL ONE (07:58)
[2018-02-14] MEDS ORDERED: BUPIVACAIN-EPI 0.25%-1:200,000 30 ML VIAL SQ ONE ×2 (08:37)
[2018-02-14] MEDS ORDERED: HYDROcodone/APAP 5-325MG 1 EACH TAB PO PRN (09:39)
[2018-02-14] MEDS ORDERED: NALOXONE 0.4 MG/ML 1 ML VIAL IV PRN (09:39)
[2018-02-14 09:46] VITALS: TEMP 97
--- NOTE | 2018-02-14 09:55 | P.OP ---
Date of Procedure: 02/14/18 Procedure(s) Performed: PREOPERATIVE DIAGNOSIS: Right inguinal hernia POSTOPERATIVE DIAGNOSIS: Same PROCEDURE: Laparoscopic repair right inguinal hernia with the da Mar robot assistance with mesh SURGEON: Ariana EBL: Minimal ANESTHESIA: General COMPLICATIONS: None OPERATIVE PROCEDURE: Patient was placed in the operating table in the supine position. The patient was placed under general anesthesia. The abdomen was prepped and draped in usual sterile fashion. A small curvilinear supraumbilical incision was made. The fascia was retracted anteriorly with Dlefin forceps. The Veress needle was inserted. The saline drop test was normal. Insufflation took place to 15 mmHg. A 5 mm trocar was placed into the peritoneal cavity. This was later switched to a 8 mm trocar. 2 additional 8 mm trochars were placed in the right upper quadrant and left upper quadrant under visualization. The xi robotic arms were then brought in and docked into place. The fenestrated bipolar was used in the left arm and the laparoscopic teetee was utilized in the right arm. A 30 8 mm scope was used in the up position. The peritoneal cavity was inspected. The patient had a moderate sized indirect right inguinal hernia. There was small bowel present within the hernia itself that was able to be reduced without difficulty. There was no visible hernia on the left side. The peritoneum was incised in a horizontal fashion cephalad to the internal inguinal ring. Following that careful dissection of the preperitoneal space took place. This took place using both electrocautery, sharp dissection but primarily blunt dissection. Visualization of the pubic tubercle and Eloy's ligament took place medially. Full dissection took place laterally as well. The hernia sac was fully dissected. Once we had adequate space the 15 x 10 progrip mesh was advanced into the preperitoneal space and flattened out appropriately to cover all potential hernia sites. No sutures were used. The peritoneal defect was then closed using a locking 2-0 VLok suture. I incorporated the reduced hernia sac into the peritoneal closure to help reduce risk of recurrence. The pneumoperitoneum was then evacuated. The skin of all 3 sites was closed using a 4-0 Monocryl stitch. Dermabond was then applied. DISPOSITION: Stable to recovery room
[2018-02-14 10:17] VITALS: RESP 16
[2018-02-14] MEDS ORDERED: HYDROcodone/APAP 5-325MG 1 EACH TAB PO ONE (14:09)
[2018-02-14] MEDS ORDERED: TAMSULOSIN 0.4 MG CAP.ER.24H PO STA (15:04)
[2018-02-14 15:57] VITALS: BP 163/89; PULSE 96
== END 2018-02-14 15:50 | disposition home or self-care (01) ==
LOC: OR 06:25
PROVIDERS: ATTEND Surgery
DX: K40.90 Unilateral inguinal hernia, without obstruction or gangrene, not specified as recurrent (principal); K21.9 Gastro-esophageal reflux disease without esophagitis; Z87.891 Personal history of nicotine dependence; Z86.73 Personal history of transient ischemic attack (TIA), and cerebral infarction without residual deficits; Z90.49 Acquired absence of other specified parts of digestive tract; Z79.899 Other long term (current) drug therapy; Z79.82 Long term (current) use of aspirin; Z88.8 Allergy status to other drugs, medicaments and biological substances
CPT/HCPCS: 49650; 99283; 51702; C1781; J2250; J1644; J1100; J2710; J2405; J2001; J3010; J0330; J2704; J0690

== ENCOUNTER 2018-02-14 21:39 | Emergency (ER) | payer MEDICARE ==
--- NOTE | 2018-02-14 23:05 | ED ---
Male Urogenital HPI - General Chief complaint: Urogenital Stated complaint: Urine Retention-post op Time Seen by Provider: 02/14/18 22:32 Source: patient, RN notes reviewed Mode of arrival: ambulatory Limitations: no limitations - History of Present Illness Initial comments: This is a 67-year-old male who just had a robotic hernia repair early this morning who had a Hines placed to decompress his bladder before being sent home was back today stating he has not urinated all day. He has suprapubic discomfort he denies any nausea vomiting fevers chills sweats or other symptoms. He does have a history of BPH. No other modifying factors at this time MD Complaint: other - Related Data Home Medications Medication Instructions Recorded Confirmed Docusate [Colace] 100 mg PO HS 09/29/15 02/14/18 Glucosamine Sulfate 500 mg PO BID 09/29/15 02/14/18 Ranitidine HCl [Zantac] 150 mg PO HS 09/29/15 02/14/18 Tumeric Extract 1 tab PO HS 09/29/15 02/14/18 L.acidoph,Paracasei, B.lactis 1 cap PO DAILY 09/20/16 02/14/18 [Probiotic] Ciclopirox (Unknown Dose) 1 applicate TOPICAL DAILY 02/07/18 02/14/18 Magnesium Gluconate [Magonate] 500 mg PO DAILY 02/07/18 02/14/18 Multi-Enzyme (Unknown Dose) 1 tab PO DAILY 02/07/18 02/14/18 Tamsulosin [Flomax] 0.4 mg PO HS 02/07/18 02/14/18 Previous Rx's Medication Instructions Recorded Aspirin [Adult Low Dose Aspirin EC] 81 mg PO DAILY #30 tablet. 09/21/16 Hydrocodone/Acetaminophen [[place] 1 - 2 each PO Q4HR PRN #5 tab 02/14/18 5-325] Allergies Allergy/AdvReac Type Severity Reaction Status Date / Time omeprazole [From Prilosec] Allergy Rash/Hives Verified 02/14/18 06:42 omeprazole magnesium Allergy Rash/Hives Verified 02/14/18 06:42 [From Prilosec] Review of Systems ROS Statement: Those systems with pertinent positive or pertinent negative responses have been documented in the HPI. ROS Other: All systems not noted in ROS Statement are negative. Past Medical History Past Medical History: CVA/TIA, Prostate Disorder, Supraventricular Tachycardia ( SVT) Additional Past Medical History / Comment(s): R numbness in back and hip area. In August 2016 TIA, did have some weakness at that time. States if he becomes dehydrated has some issues with SVT. Has not had any problems with SVT for 10 years or so. History of Any Multi-Drug Resistant Organisms: None Reported Past Surgical History: Ablation, Appendectomy, Cholecystectomy, Hernia Repair Additional Past Surgical History / Comment(s): Leg surgery for broken leg. L knee arthroscopy. States had infections after two of his surgeries. Past Anesthesia/Blood Transfusion Reactions: No Reported Reaction Past Psychological History: No Psychological Hx Reported Smoking Status: Former smoker - Past Family History Mother Family Medical History: Dementia Father Family Medical History: Osteoarthritis (OA) Additional Family Medical History / Comment(s): hepatitis C, diverticulitis Brother(s) Family Medical History: Cancer, Coronary Artery Disease (CAD), Respiratory Disorder Additional Family Medical History / Comment(s): CABG, chemical pneumonia, glioblastoma General Exam - General Exam Comments Initial Comments: This is a well-developed well-nourished awake alert oriented 3 male Limitations: no limitations General appearance: alert, in no apparent distress Head exam: Present: atraumatic, normocephalic, normal inspection Eye exam: Present: normal appearance, PERRL, EOMI. Absent: scleral icterus, conjunctival injection, periorbital swelling ENT exam: Present: normal exam, mucous membranes moist GI/Abdominal exam: Present: soft, other (Distended bladder. Surgical port sites appear to be intact no evidence of wound dehiscence or bleeding) Rectal exam: Present: deferred Neurological exam: Present: alert, oriented X3, CN II-XII intact Psychiatric exam: Present: normal affect, normal mood Course Vital Signs 02/14/18 21:53 Temperature 97.7 F Pulse Rate 108 H Respiratory 20 Rate Blood Pressure 152/98 O2 Sat by Pulse 98 Oximetry Medical Decision Making - Medical Decision Making The patient had a Hines placed upon arrival 400-500 mL of fluid. He feels much improved the. We did discuss options he will like to be sent home with a Hines catheter tonight due to the earlier urinary difficulties. This is reasonable he 'll follow-up and retain the catheter with 2 days he does have an appointment to see Dr. Shaver next week Disposition Clinical Impression: Acute urinary retention, Benign prostatic hyperplasia Disposition: HOME SELF-CARE Condition: Good Instructions: Urinary Retention in Men (ED), Enlarged Prostate (BPH) (ED) Is patient prescribed a controlled substance at d/c from ED?: No Referrals: Osvaldo Anthony III, MD [Primary Care Provider] - 1-2 days Joe Shaver MD [STAFF PHYSICIAN] - 1-2 days
[2018-02-14 23:26] VITALS: BP 143/87; PULSE 94; RESP 18; TEMP 97.4
== END 2018-02-14 23:26 | disposition home or self-care (01) ==
LOC: EC 21:39
DX: N40.0 Benign prostatic hyperplasia without lower urinary tract symptoms (principal); R33.9 Retention of urine, unspecified; Z86.73 Personal history of transient ischemic attack (TIA), and cerebral infarction without residual deficits; Z87.891 Personal history of nicotine dependence; Z90.49 Acquired absence of other specified parts of digestive tract; Z98.890 Other specified postprocedural states; Z79.899 Other long term (current) drug therapy; Z88.8 Allergy status to other drugs, medicaments and biological substances
CPT/HCPCS: 51702; 99283

== ENCOUNTER → 2018-06-05 | Outpatient (CLI) | payer MEDICARE ==
--- NOTE | 2018-06-05 15:20 | US ---
EXAMINATION TYPE: US carotid duplex BILAT DATE OF EXAM: 06/05/2018 COMPARISON: 09/21/2016 CLINICAL HISTORY: 68-year-old male G45.9 Transient cerebral ischemic attack. Pt states transient left side numbness TECHNIQUE: Carotid duplex ultrasound examination. In direct Doppler criteria was utilized. FINDINGS: EXAM MEASUREMENTS: RIGHT: Peak Systolic Velocity (PSV) cm/sec ----- Right CCA: 101.8 ----- Right ICA: 125.5 ----- Right ECA: 131.9 ICA/CCA ratio: 1.2 RIGHT: End Diastole cm/sec ----- Right CCA: 29.8 ----- Right ICA: 18.8 ----- Right ECA: 26.8 LEFT: Peak Systolic Velocity (PSV) cm/sec ----- Left CCA: 109.6 ----- Left ICA: 118.7 ----- Left ECA: 151.0 ICA/CCA ratio: 1.1 LEFT: End Diastole cm/sec ----- Left CCA: 38.3 ----- Left ICA: 43.5 ----- Left ECA: 30.8 VERTEBRALS (direction of flow): Right Vertebral: Antegrade Left Vertebral: Antegrade Rhythm: Normal Walking Dragline Oiler notes: Slightly elevated velocities entire carotid system bilaterally not caused by steno sis IMPRESSION: Slightly elevated peak systolic velocities within the bilateral common and right internal carotid art eries. No flow limiting plaque or calcification is identified. Findings likely secondary to high card iac output such as in the setting of hypertension. Clinically correlate. No hemodynamically significa nt stenosis appreciated in either internal carotid artery. Criteria for Assigning % of Stenosis / Diameter reduction (Estimation based on the indirect measurements of the internal carotid artery velocities (ICA PSV). 1. Normal (no stenosis)=ICA PSV < 125 cm/s: ratio < 2.0: ICA EDV<40 cm/s. 2. Less than 50% stenosis=ICA PSV < 125 cm/s: ratio < 2.0: ICA EDV<40 cm/s. 3. 50 to 69% stenosis=ICA PSV of 125 to 230 cm/s: ration 2.0 ? 4.0: ICA EDV 40-100 cm/s. 4. Greater than 70% stenosis to near occlusion= ICA PSV > 230 cm/s: ratio > 4.0: ICA EDV > 100 cm/s. 5. Near occlusion= ICA PSV velocities may be low or undetectable: variable ratio and ICA EDV. 6. Total occlusion=unable to detect flow.
--- NOTE | 2018-06-05 17:03 | ECHOF ---
Referral Reason:G45.9 TRANSIENT CEREBRAL ISCHEMIC MEASUREMENTS -------- HEIGHT: 180.3 cm WEIGHT: 95.3 kg BP: RVIDd: 3.1 cm (< 3.3) IVSd: 1.2 cm (0.6 - 1.1) LVIDd: 4.1 cm (3.9 - 5.3) LVPWd: 1.1 cm (0.6 - 1.1) IVSs: 1.6 cm LVIDs: 2.9 cm LVPWs: 1.5 cm LAESV Index (A-L): 16.46 ml/m Ao Diam: 3.0 cm (2.0 - 3.7) AV Cusp: 2.2 cm (1.5 - 2.6) LA Diam: 3.6 cm (2.7 - 3.8) MV EXCURSION: 16.594 mm (> 18.000) MV EF SLOPE: 42 mm/s (70 - 150) EPSS: 0.3 cm MV E Leo: 0.64 m/s MV DecT: 252 ms MV A Leo: 0.69 m/s MV E/A Ratio: 0.92 RAP: 5.00 mmHg RVSP: 26.90 mmHg FINDINGS -------- Sinus rhythm. This was a technically good study. The left ventricular size is normal. There is borderline concentric left ventricular hypertrophy. Overall left ventricular systolic function is normal with, an EF between 55 - 60 %. The right ventricle is normal in size and function. Normal LA size by volume 22+/-6 ml/m2. The right atrium is normal in size. The aortic valve is trileaflet, and appears structurally normal. No aortic stenosis or regurgitation. The mitral valve leaflets are mildly thickened. There is trace mitral regurgitation. Mild tricuspid regurgitation present. Right ventricular systolic pressure is normal at < 35 mmHg. There is no evidence of pulmonary hypertension. Trace/mild (physiologic) pulmonic regurgitation. The aortic root size is normal. Normal inferior vena cava with normal inspiratory collapse consistent with estimated right atrial pre ssure of 5 mmHg. There is no pericardial effusion. CONCLUSIONS -------- 1. Sinus rhythm. 2. This was a technically good study. 3. The left ventricular size is normal. 4. There is borderline concentric left ventricular hypertrophy. 5. Overall left ventricular systolic function is normal with, an EF between 55 - 60 %. 6. Normal LA size by volume 22+/-6 ml/m2. 7. The aortic valve is trileaflet, and appears structurally normal. No aortic stenosis or regurgitati on. 8. The mitral valve leaflets are mildly thickened. 9. There is trace mitral regurgitation. 10. Mild tricuspid regurgitation present. 11. Right ventricular systolic pressure is normal at < 35 mmHg. 12. There is no evidence of pulmonary hypertension. 13. Trace/mild (physiologic) pulmonic regurgitation. 14. The aortic root size is normal. 15. There is no pericardial effusion. C[employer] DRILLING SUPERVISOR: Fernando Bradley RDCS
== END | disposition home or self-care (01) ==
LOC: RADUSWWP 14:05
PROVIDERS: ATTEND Family Medicine
DX: I08.1 Rheumatic disorders of both mitral and tricuspid valves (principal); G45.9 Transient cerebral ischemic attack, unspecified
CPT/HCPCS: 93306; 93880

== ENCOUNTER → 2018-08-20 | Outpatient (CLI) | payer MEDICARE ==
[2018-08-20 16:29] LABS: Anion Gap 9.2 mmol/L (4.00-12.00); Calcium 9.2 mg/dL (8.7-10.3); Carbon Dioxide 26.8 mmol/L (21.6-31.8); LDL Cholesterol,Calculated 60.4 mg/dL (0.0-131.0); Potassium 4.9 mmol/L (3.5-5.5); VLDL Calculation 18.6 mg/dL (5.00-40.00)
== END ==
LOC: LABWHC1 08:26
PROVIDERS: ATTEND Urology
DX: C61 Malignant neoplasm of prostate (principal); E78.2 Mixed hyperlipidemia
CPT/HCPCS: 36415; 80048; 80061; 84153

== ENCOUNTER → 2018-11-19 | Outpatient (CLI) | payer MEDICARE ==
[2018-11-19 17:12] LABS: African American GFR (CKD) 90.5 (60.0-200.0); Albumin 4.2 g/dL (3.80-4.90); Albumin/Globulin Ratio 1.75 (1.60-3.17); Anion Gap 10.2 mmol/L (4.00-12.00); Calcium 9.1 mg/dL (8.7-10.3); Carbon Dioxide 24.8 mmol/L (21.6-31.8); Globulin 2.4 g/dL (1.6-3.3); Potassium 5.3 mmol/L (3.5-5.5); Total Bilirubin 0.3 mg/dL (0.2-1.2); Total Protein 6.6 g/dL (6.2-8.2)
== END | disposition home or self-care (01) ==
LOC: LABWHC1 08:32
PROVIDERS: ATTEND Nurse Practitioner Family
DX: I51.7 Cardiomegaly (principal); E78.2 Mixed hyperlipidemia
CPT/HCPCS: 36415; 80053; 80061

== ENCOUNTER 2018-11-26 04:13 | Emergency (ER) | payer MEDICARE ==
[2018-11-26 04:25] VITALS: BP 163/92; PULSE 93; RESP 18; TEMP 98
--- NOTE | 2018-11-26 04:51 | ED ---
Male Urogenital HPI - General Chief complaint: Urogenital Stated complaint: male Time Seen by Provider: 11/26/18 04:50 Source: patient, RN notes reviewed, old records reviewed Mode of arrival: ambulatory Limitations: no limitations - History of Present Illness Initial comments: This is a 68-year-old male the ER for evaluation. Patient complaining of bowel pain inability urinate. Concern this morning pain is been increased inability urinate has continued. No recent blood in his urine no recent surgical procedures. Patient has history of BPH. Patient has had need for Hines the past secondary retention MD Complaint: other (Abdominal pain) -: hour(s) Radiation: none Severity: severe Severity scale (1-10): 10 Quality: sharp, stabbing Consistency: constant Improves with: none Worsens with: none Reports: urinary retention - Related Data Home Medications Medication Instructions Recorded Confirmed Docusate [Colace] 100 mg PO HS 09/29/15 02/14/18 Glucosamine Sulfate 500 mg PO BID 09/29/15 02/14/18 Ranitidine HCl [Zantac] 150 mg PO HS 09/29/15 02/14/18 Tumeric Extract 1 tab PO HS 09/29/15 02/14/18 L.acidoph,Paracasei, B.lactis 1 cap PO DAILY 09/20/16 02/14/18 [Probiotic] Ciclopirox (Unknown Dose) 1 applicate TOPICAL DAILY 02/07/18 02/14/18 Magnesium Gluconate [Magonate] 500 mg PO DAILY 02/07/18 02/14/18 Multi-Enzyme (Unknown Dose) 1 tab PO DAILY 02/07/18 02/14/18 Tamsulosin [Flomax] 0.4 mg PO HS 02/07/18 02/14/18 Previous Rx's Medication Instructions Recorded Aspirin [Adult Low Dose Aspirin EC] 81 mg PO DAILY #30 tablet. 09/21/16 Hydrocodone/Acetaminophen [[place] 1 - 2 each PO Q4HR PRN #5 tab 02/14/18 5-325] Allergies Allergy/AdvReac Type Severity Reaction Status Date / Time omeprazole [From Prilosec] Allergy Rash/Hives Verified 11/26/18 04:25 omeprazole magnesium Allergy Rash/Hives Verified 11/26/18 04:25 [From Prilosec] Review of Systems ROS Statement: Those systems with pertinent positive or pertinent negative responses have been documented in the HPI. ROS Other: All systems not noted in ROS Statement are negative. Past Medical History Past Medical History: CVA/TIA, Prostate Disorder, Supraventricular Tachycardia (SVT) Additional Past Medical History / Comment(s): R numbness in back and hip area. In August 2016 TIA, did have some weakness at that time. States if he becomes dehydrated has some issues with SVT. Has not had any problems with SVT for 10 years or so. History of Any Multi-Drug Resistant Organisms: None Reported Past Surgical History: Ablation, Appendectomy, Cholecystectomy, Hernia Repair Additional Past Surgical History / Comment(s): Leg surgery for broken leg. L knee arthroscopy. States had infections after two of his surgeries. Past Anesthesia/Blood Transfusion Reactions: No Reported Reaction Past Psychological History: No Psychological Hx Reported Smoking Status: Former smoker Past Alcohol Use History: None Reported Past Drug Use History: None Reported - Past Family History Mother Family Medical History: Dementia Father Family Medical History: Osteoarthritis (OA) Additional Family Medical History / Comment(s): hepatitis C, diverticulitis Brother(s) Family Medical History: Cancer, Coronary Artery Disease (CAD), Respiratory Disorder Additional Family Medical History / Comment(s): CABG, chemical pneumonia, glioblastoma General Exam Limitations: no limitations General appearance: alert, in no apparent distress Head exam: Present: atraumatic, normocephalic, normal inspection Eye exam: Present: normal appearance, PERRL, EOMI. Absent: scleral icterus, conjunctival injection, periorbital swelling ENT exam: Present: normal exam, mucous membranes moist Neck exam: Present: normal inspection. Absent: tenderness, meningismus, lymphadenopathy Respiratory exam: Present: normal lung sounds bilaterally. Absent: respiratory distress, wheezes, rales, rhonchi, stridor Cardiovascular Exam: Present: regular rate, normal rhythm, normal heart sounds. Absent: systolic murmur, diastolic murmur, rubs, gallop, clicks GI/Abdominal exam: Present: soft, normal bowel sounds. Absent: distended, tenderness, guarding, rebound, rigid Extremities exam: Present: normal inspection, full ROM, normal capillary refill. Absent: tenderness, pedal edema, joint swelling, calf tenderness Back exam: Present: normal inspection Neurological exam: Present: alert, oriented X3, CN II-XII intact Psychiatric exam: Present: normal affect, normal mood Skin exam: Present: warm, dry, intact, normal color. Absent: rash Course Vital Signs 11/26/18 04:19 Temperature 98 F Pulse Rate 93 Respiratory 18 Rate Blood Pressure 163/92 O2 Sat by Pulse 97 Oximetry Medical Decision Making - Medical Decision Making 68 male the ER for evaluation of significant urinary retention, Hines is placed and patient will be discharged to follow-up with urology - Lab Data Lab Results 11/26/18 Range/Units 04:44 Urine Color Yellow Urine Appearance Clear (Clear) Urine pH 5.5 (5.0-8.0) Ur Specific [place] 1.013 (1.001-1.035) Urine Protein Negative (Negative) Urine Glucose (UA) Negative (Negative) Urine Ketones Negative (Negative) Urine Blood Moderate H (Negative) Urine Nitrite Negative (Negative) Urine Bilirubin Negative (Negative) Urine Urobilinogen <2.0 (<2.0) mg/dL Ur Leukocyte Esterase Negative (Negative) Urine RBC 31 H (0-5) /hpf Urine Mucus Rare H (None) /hpf Disposition Clinical Impression: Urinary retention Disposition: HOME SELF-CARE Condition: Good Instructions (If sedation given, give patient instructions): Urinary Retention in Men (ED) Is patient prescribed a controlled substance at d/c from ED?: No Referrals: Osvaldo Anthony III, MD [Primary Care Provider] - 1-2 days
[2018-11-26 05:00] LABS: Appearance,Urine Clear (Clear); Bilirubin,Urine Negative (Negative); Blood,Urine Moderate (Negative); Color,Urine Yellow; Glucose,Urine (UA) Negative (Negative); Ketones,Urine Negative (Negative); Leukocyte Esterase,Urine Negative (Negative); Mucus,Urine Rare /hpf; Nitrite,Urine Negative (Negative); PH, Urine 5.5 (5.0-8.0); Protein,Urine Negative (Negative); RBC,Urine 31 /hpf (0-5); Specific Gravity,Urine 1.013 (1.001-1.035); Urobilinogen,Urine <2.0 mg/dL (<2.0)
== END 2018-11-26 05:28 | disposition home or self-care (01) ==
LOC: EC 04:13
DX: R33.9 Retention of urine, unspecified (principal); N40.1 Benign prostatic hyperplasia with lower urinary tract symptoms; Z87.891 Personal history of nicotine dependence; Z88.8 Allergy status to other drugs, medicaments and biological substances; Z86.73 Personal history of transient ischemic attack (TIA), and cerebral infarction without residual deficits
CPT/HCPCS: 51702; 81001; 99284

== ENCOUNTER → 2018-12-20 | Outpatient (CLI) | payer MEDICARE ==
--- NOTE | 2018-12-20 08:02 | US ---
EXAMINATION TYPE: [place] medicare screen for AAA DATE OF EXAM: 12/20/2018 COMPARISON: NONE CLINICAL HISTORY: Z13.6 Encounter for screening for cardiovascular. Screening EXAM MEASUREMENTS: Abdominal Aorta: Proximal: 2.0 x 1.7cm Mid: 1.7 x 1.6cm Distal: 1.7 x 1.4cm Bifurcation: RT: 1.2 x 0.9cm LT: 1.0 x 0.9cm No evidence of AAA at this time. IMPRESSION: No sonographic evidence of abdominal aortic aneurysm in the visualized portions of the ab dominal aorta.
== END | disposition home or self-care (01) ==
LOC: RADUSWWP 07:23
PROVIDERS: ATTEND Family Medicine
DX: Z13.6 Encounter for screening for cardiovascular disorders (principal); E78.2 Mixed hyperlipidemia; Z87.891 Personal history of nicotine dependence
CPT/HCPCS: 76706

== ENCOUNTER → 2019-02-25 | Outpatient (CLI) | payer MEDICARE | END | disposition home or self-care (01) | LOC: LABWHC1 09:09 | PROVIDERS: ATTEND Urology | DX: R97.20 Elevated prostate specific antigen [PSA] (principal) | CPT/HCPCS: 36415; 84153 ==

== ENCOUNTER → 2020-08-11 | Outpatient (CLI) | payer MEDICARE ==
--- NOTE | 2020-08-12 07:06 | US ---
EXAMINATION TYPE: US venous doppler duplex LE RT DATE OF EXAM: 08/11/2020 4:20 PM COMPARISON: NONE CLINICAL HISTORY: I80.9 Phlebitis and thrombophlebitis of unspecifie. Pt states right leg pain SIDE PERFORMED: Right TECHNIQUE: The lower extremity deep venous system is examined utilizing real time linear array sonog kayley with graded compression, doppler sonography and color-flow sonography. VESSELS IMAGED: Common Femoral Vein Deep Femoral Vein Greater Saphenous Vein * Femoral Vein Popliteal Vein Small Saphenous Vein * Proximal Calf Veins (* superficial vessels) Right Leg: Negative for DVT IMPRESSION: No evidence of DVT at this time.
== END | disposition home or self-care (01) ==
LOC: RADUSWWP 16:04
PROVIDERS: ATTEND Podiatrist
DX: M79.671 Pain in right foot (principal); I80.9 Phlebitis and thrombophlebitis of unspecified site

== ENCOUNTER 2020-08-28 10:06 | Emergency (ER) | payer MEDICARE ==
[2020-08-28 10:10] VITALS: RESP 18
[2020-08-28] MEDS ORDERED: ONDANSETRON ODT 8 MG TAB.RAPDIS PO STA (10:35)
[2020-08-28] MEDS ORDERED: SODIUM CHLORIDE 0.9% 1,000 ML IV STA (10:35)
[2020-08-28] MEDS ORDERED: FAMOTIDINE 20 MG/2 ML VIAL IV STA (10:36)
--- NOTE | 2020-08-28 10:39 | ED ---
Nausea/Vomiting/Diarrhea HPI - General Chief complaint: Nausea/Vomiting/Diarrhea Stated complaint: Weakness,Dehydration Time Seen by Provider: 08/28/20 10:25 Source: patient Mode of arrival: wheelchair Limitations: physical limitation - History of Present Illness Initial comments: 70-year-old male with recent diagnosis of thrombophlebitis of the right lower extremity present today for chief complaint of nausea and epigastric abdominal pain. Patient states that on August 11 that he began having pain along a vein in the right LE. He had an US no long after and was diagnosed with thrombophlebitis and placed on naprosen and a medrol dose pack> patient states not long into taking these medications he began having pain with eating and nausea. Patient s tates that he has been off steroids now since Monday and stopped the naprosen a day or two prior to that but continues to have symptoms. Pt denies black or bloody stools. Denies chest pain, dyspnea. Patietn states he feels dehydrated, weakn secondary to not wanting to eat/drink anything. Patient denies lower abdominal pain. Patient denies fevers, cough or uRI symptoms. Upon arrival patient appears nontoxic in no acute distress. - Related Data Home Medications Medication Instructions Recorded Confirmed Docusate [Colace] 100 mg PO DAILY 09/29/15 08/28/20 L.acidoph,Paracasei, B.lactis 1 cap PO DAILY 09/20/16 08/28/20 [Probiotic] Magnesium Gluconate [Magonate] 500 mg PO DAILY 02/07/18 08/28/20 Aspirin [Adult Low Dose Aspirin EC] 81 mg PO HS 08/28/20 08/28/20 Atorvastatin [Lipitor] 10 mg PO HS 08/28/20 08/28/20 Cholecalciferol [Vitamin D3 (25 25 mcg PO DAILY 08/28/20 08/28/20 Mcg = 1000 Iu)] Famotidine 20 mg PO DAILY 08/28/20 08/28/20 Flaxseed Oil 1,000 mg PO DAILY 08/28/20 08/28/20 Glucosam/Sid-Msm1/C/Simone/Bosw 1 tab PO BID 08/28/20 08/28/20 [Whmoapwqkdd-Ztccovjqrib-RLO Tb] Lysine [l-Lysine] 500 mg PO DAILY 08/28/20 08/28/20 Multivitamins, Thera [Multivitamin 1 tab PO DAILY 08/28/20 08/28/20 (formulary)] Turmeric Root Extract [Turmeric] 500 mg PO DAILY 08/28/20 08/28/20 Previous Rx's Medication Instructions Recorded Famotidine [Pepcid] 20 mg PO BID 10 Days #20 tablet 08/28/20 Allergies Allergy/AdvReac Type Severity Reaction Status Date / Time omeprazole [From Prilosec] Allergy Rash/Hives Verified 08/28/20 11:07 omeprazole magnesium Allergy Rash/Hives Verified 08/28/20 11:07 [From Prilosec] amoxicillin [From Augmentin] AdvReac Diarrhea Verified 08/28/20 11:07 clavulanic acid AdvReac Diarrhea Verified 08/28/20 11:07 [From Augmentin] oseltamivir AdvReac Diarrhea Verified 08/28/20 11:07 Review of Systems ROS Statement: Those systems with pertinent positive or pertinent negative responses have been documented in the HPI. ROS Other: All systems not noted in ROS Statement are negative. Past Medical History Past Medical History: CVA/TIA, Prostate Disorder, Supraventricular Tachycardia (SVT) Additional Past Medical History / Comment(s): R numbness in back and hip area. In August 2016 TIA, did have some weakness at that time. States if he becomes dehydrated has some issues with SVT. Has not had any problems with SVT for 10 years or so. History of Any Multi-Drug Resistant Organisms: None Reported Past Surgical History: Ablation, Appendectomy, Cholecystectomy, Hernia Repair, Prostate Surgery Additional Past Surgical History / Comment(s): Leg surgery for broken leg. L knee arthroscopy. States had infections after two of his surgeries. Past Anesthesia/Blood Transfusion Reactions: No Reported Reaction Past Psychological History: No Psychological Hx Reported Smoking Status: Never smoker Past Alcohol Use History: None Reported Past Drug Use History: None Reported - Past Family History Mother Family Medical History: Dementia Father Family Medical History: Osteoarthritis (OA) Additional Family Medical History / Comment(s): hepatitis C, diverticulitis Brother(s) Family Medical History: Cancer, Coronary Artery Disease (CAD), Respiratory Disorder Additional Family Medical History / Comment(s): CABG, chemical pneumonia, glioblastoma General Exam - General Exam Comments Initial Comments: General: The patient is awake and alert, in no distress, and does not appear acutely ill. Eye: Pupils are equal, round and reactive to light, extra-ocular movements are intact. No nystagmus. There is normal conjunctiva bilaterally. No signs of icterus. Ears, nose, mouth and throat: There are moist mucous membranes and no oral lesions. Neck: The neck is supple, there is no tenderness or JVD. Cardiovascular: There is a regular rate and rhythm. No murmur, rub or gallop is appreciated. Respiratory: Lungs are clear to auscultation, respirations are non-labored, breath sounds are equal. No wheezes, stridor, rales, or rhonchi. Gastrointestinal: [Soft, non-distended, mild-moderate epigastric tenderness to palpation of the abdomen, abdomen is without masses or organomegaly noted. There is no rebound or guarding present. Musculoskeletal: Normal ROM, no tenderness. Strength 5/5. Sensation intact. Pulses equal bilaterally 2+. Neurological: A&O x 3. CN II-XII intact, There are no obvious motor or sensory deficits. Coordination appears grossly intact. Speech is normal. Skin: Skin is warm and dry and no rashes or lesions are noted. Psychiatric: Cooperative, appropriate mood & affect, normal judgment. Limitations: physical limitation Course Vital Signs 08/28/20 08/28/20 08/28/20 10:07 11:12 13:15 Temperature 97.6 F Pulse Rate 68 67 70 Respiratory 18 18 18 Rate Blood Pressure 131/73 137/76 132/76 O2 Sat by Pulse 100 98 98 Oximetry 08/28/20 14:32 Temperature 98.3 F Pulse Rate 75 Respiratory 18 Rate Blood Pressure 122/78 O2 Sat by Pulse 97 Oximetry Medical Decision Making - Medical Decision Making Labs stable. no perforation or specific findings on CT. liver lesion discussed pt aware. pt is to f/u with GI, avoidance and discontinuation of naprosen discussed as there is concern peptic ulcer disease. pt discharged on zofran pepcid and is to f/u with pcp/GI and return for worsening symptoms. complications of PUD discussed including risk ofperforation. no signs consistent with that at this time. Dr Kumar agreeable to care plan and discharge. Ventricular rate 63 bpm, GA interval 176 pulse seconds, QRS catholic 72 ms, QT/QTC 424/433 this is normal sinus with no ST elevation or depression appreciated - Lab Data Result diagrams: 08/28/20 10:48 08/28/20 10:48 Lab Results 08/28/20 08/28/20 08/28/20 Range/Units 10:20 10:48 10:48 WBC 10.0 (3.8-10.6) k/uL RBC 5.75 (4.30-5.90) m/uL Hgb 17.2 (13.0-17.5) gm/dL Hct 50.7 (39.0-53.0) % MCV 88.1 (80.0-100.0) fL MCH 29.8 (25.0-35.0) pg MCHC 33.8 (31.0-37.0) g/dL RDW 13.5 (11.5-15.5) % Plt Count 259 (150-450) k/uL MPV 7.5 Neutrophils % 73 % Lymphocytes % 19 % Monocytes % 6 % Eosinophils % 1 % Basophils % 1 % Neutrophils # 7.3 (1.3-7.7) k/uL Lymphocytes # 1.9 (1.0-4.8) k/uL Monocytes # 0.6 (0-1.0) k/uL Eosinophils # 0.1 (0-0.7) k/uL Basophils # 0.1 (0-0.2) k/uL PT 11.3 (9.0-12.0) sec INR 1.1 (<1.2) APTT 22.4 (22.0-30.0) sec Sodium (137-145) mmol/L Potassium (3.5-5.1) mmol/L Chloride (98-107) mmol/L Carbon Dioxide (22-30) mmol/L Anion Gap mmol/L BUN (9-20) mg/dL Creatinine (0.66-1.25) mg/dL Est GFR (CKD-EPI)AfAm (>60 ml/min/1.73 sqM) Est GFR (CKD-EPI)NonAf (>60 ml/min/1.73 sqM) Glucose (74-99) mg/dL Lactic Ac Sepsis Rflx Plasma Lactic Acid Harry (0.7-2.0) mmol/L Calcium (8.4-10.2) mg/dL Magnesium (1.6-2.3) mg/dL Total Bilirubin (0.2-1.3) mg/dL AST (17-59) U/L ALT (4-49) U/L Alkaline Phosphatase (38-126) U/L Troponin I (0.000-0.034) ng/mL Total Protein (6.3-8.2) g/dL Albumin (3.5-5.0) g/dL Amylase (30-110) U/L Lipase (23-300) U/L Urine Color Urine Appearance (Clear) Urine pH (5.0-8.0) Ur Specific [place] (1.001-1.035) Urine Protein (Negative) Urine Glucose (UA) (Negative) Urine Ketones (Negative) Urine Blood (Negative) Urine Nitrite (Negative) Urine Bilirubin (Negative) Urine Urobilinogen (<2.0) mg/dL Ur Leukocyte Esterase (Negative) Urine RBC (0-5) /hpf Urine WBC (0-5) /hpf Ur Squamous Epith Cells (0-4) /hpf Hyaline Casts (0-2) /lpf Urine Mucus (None) /hpf Influenza Type A (PCR) Not Detected (Not Detectd) Influenza Type B (PCR) Not Detected (Not Detectd) RSV (PCR) Not Detected (Not Detectd) SARS-CoV-2 (PCR) Not Detected (Not Detectd) 08/28/20 08/28/20 08/28/20 Range/Units 10:48 10:48 10:48 WBC (3.8-10.6) k/uL RBC (4.30-5.90) m/uL Hgb (13.0-17.5) gm/dL Hct (39.0-53.0) % MCV (80.0-100.0) fL MCH (25.0-35.0) pg MCHC (31.0-37.0) g/dL RDW (11.5-15.5) % Plt Count (150-450) k/uL MPV Neutrophils % % Lymphocytes % % Monocytes % % Eosinophils % % Basophils % % Neutrophils # (1.3-7.7) k/uL Lymphocytes # (1.0-4.8) k/uL Monocytes # (0-1.0) k/uL Eosinophils # (0-0.7) k/uL Basophils # (0-0.2) k/uL PT (9.0-12.0) sec INR (<1.2) APTT (22.0-30.0) sec Sodium 137 (137-145) mmol/L Potassium 4.2 (3.5-5.1) mmol/L Chloride 104 (98-107) mmol/L Carbon Dioxide 23 (22-30) mmol/L Anion Gap 10 mmol/L BUN 19 (9-20) mg/dL Creatinine 1.16 (0.66-1.25) mg/dL Est GFR (CKD-EPI)AfAm 75 (>60 ml/min/1.73 sqM) Est GFR (CKD-EPI)NonAf 65 (>60 ml/min/1.73 sqM) Glucose 94 (74-99) mg/dL Lactic Ac Sepsis Rflx Plasma Lactic Acid Harry 2.1 H* (0.7-2.0) mmol/L Calcium 9.4 (8.4-10.2) mg/dL Magnesium 2.0 (1.6-2.3) mg/dL Total Bilirubin 1.2 (0.2-1.3) mg/dL AST 44 (17-59) U/L ALT 61 H (4-49) U/L Alkaline Phosphatase 73 (38-126) U/L Troponin I <0.012 (0.000-0.034) ng/mL Total Protein 7.5 (6.3-8.2) g/dL Albumin 4.2 (3.5-5.0) g/dL Amylase 58 (30-110) U/L Lipase 79 (23-300) U/L Urine Color Urine Appearance (Clear) Urine pH (5.0-8.0) Ur Specific [place] (1.001-1.035) Urine Protein (Negative) Urine Glucose (UA) (Negative) Urine Ketones (Negative) Urine Blood (Negative) Urine Nitrite (Negative) Urine Bilirubin (Negative) Urine Urobilinogen (<2.0) mg/dL Ur Leukocyte Esterase (Negative) Urine RBC (0-5) /hpf Urine WBC (0-5) /hpf Ur Squamous Epith Cells (0-4) /hpf Hyaline Casts (0-2) /lpf Urine Mucus (None) /hpf Influenza Type A (PCR) (Not Detectd) Influenza Type B (PCR) (Not Detectd) RSV (PCR) (Not Detectd) SARS-CoV-2 (PCR) (Not Detectd) 08/28/20 08/28/20 Range/Units 11:25 11:42 WBC (3.8-10.6) k/uL RBC (4.30-5.90) m/uL Hgb (13.0-17.5) gm/dL Hct (39.0-53.0) % MCV (80.0-100.0) fL MCH (25.0-35.0) pg MCHC (31.0-37.0) g/dL RDW (11.5-15.5) % Plt Count (150-450) k/uL MPV Neutrophils % % Lymphocytes % % Monocytes % % Eosinophils % % Basophils % % Neutrophils # (1.3-7.7) k/uL Lymphocytes # (1.0-4.8) k/uL Monocytes # (0-1.0) k/uL Eosinophils # (0-0.7) k/uL Basophils # (0-0.2) k/uL PT (9.0-12.0) sec INR (<1.2) APTT (22.0-30.0) sec Sodium (137-145) mmol/L Potassium (3.5-5.1) mmol/L Chloride (98-107) mmol/L Carbon Dioxide (22-30) mmol/L Anion Gap mmol/L BUN (9-20) mg/dL Creatinine (0.66-1.25) mg/dL Est GFR (CKD-EPI)AfAm (>60 ml/min/1.73 sqM) Est GFR (CKD-EPI)NonAf (>60 ml/min/1.73 sqM) Glucose (74-99) mg/dL Lactic Ac Sepsis Rflx Y Plasma Lactic Acid Harry (0.7-2.0) mmol/L Calcium (8.4-10.2) mg/dL Magnesium (1.6-2.3) mg/dL Total Bilirubin (0.2-1.3) mg/dL AST (17-59) U/L ALT (4-49) U/L Alkaline Phosphatase (38-126) U/L Troponin I (0.000-0.034) ng/mL Total Protein (6.3-8.2) g/dL Albumin (3.5-5.0) g/dL Amylase (30-110) U/L Lipase (23-300) U/L Urine Color Yellow Urine Appearance Clear (Clear) Urine pH 6.5 (5.0-8.0) Ur Specific [place] 1.030 (1.001-1.035) Urine Protein 1+ H (Negative) Urine Glucose (UA) Negative (Negative) Urine Ketones 4+ H (Negative) Urine Blood Negative (Negative) Urine Nitrite Negative (Negative) Urine Bilirubin Negative (Negative) Urine Urobilinogen 2.0 (<2.0) mg/dL Ur Leukocyte Esterase Trace H (Negative) Urine RBC 2 (0-5) /hpf Urine WBC 3 (0-5) /hpf Ur Squamous Epith Cells <1 (0-4) /hpf Hyaline Casts 1 (0-2) /lpf Urine Mucus Many H (None) /hpf Influenza Type A (PCR) (Not Detectd) Influenza Type B (PCR) (Not Detectd) RSV (PCR) (Not Detectd) SARS-CoV-2 (PCR) (Not Detectd) Disposition Clinical Impression: Epigastric pain, Liver lesion, Nausea, Dehydration Disposition: HOME SELF-CARE Condition: Good Instructions (If sedation given, give patient instructions): Peptic Ulcer (ED) Additional Instructions: Please use medication as discussed. Please follow-up with family doctor in the next 2 days. please seek GI follow-up as discussed. Take pepcid, no NSAIDS (alleve, naprosen, ibuprofen), avoid spicy/citric foods, avoid coffee/alcohol. Please return to emergency room if the symptoms increase or worsen or for any other concerns-dark stools, bloody stools, severe/worsening/persistent pain. Prescriptions: Famotidine [Pepcid] 20 mg PO BID 10 Days #20 tablet Is patient prescribed a controlled substance at d/c from ED?: No Referrals: Osvaldo Anthony III, MD [Primary Care Provider] - 1-2 days Doimnik Loza MD [STAFF PHYSICIAN] - 1-2 days Time of Disposition: 13:47
[2020-08-28 11:05] LABS: Basophils # (A) 0.1 k/uL (0-0.2); Basophils % (A) 1 %; Eosinophils # (A) 0.1 k/uL (0-0.7); Eosinophils % (A) 1 %; HCT 50.7 % (39.0-53.0); HGB 17.2 gm/dL (13.0-17.5); Lymphocytes # (A) 1.9 k/uL (1.0-4.8); Lymphocytes % (A) 19 %; MCH 29.8 pg (25.0-35.0); MCHC 33.8 g/dL (31.0-37.0); MCV 88.1 fL (80.0-100.0); Mean Platelet Volume 7.5; Monocytes # (A) 0.6 k/uL (0-1.0); Monocytes % (A) 6 %; Neutrophils # (A) 7.3 k/uL (1.3-7.7); Neutrophils % (A) 73 %; Platelet Count 259 k/uL (150-450); RBC 5.75 m/uL (4.30-5.90); RDW 13.5 % (11.5-15.5)
[2020-08-28 11:17] LABS: Albumin 4.2 g/dL (3.5-5.0); Calcium 9.4 mg/dL (8.4-10.2); Potassium 4.2 mmol/L (3.5-5.1); Total Bilirubin 1.2 mg/dL (0.2-1.3); Total Protein 7.5 g/dL (6.3-8.2)
[2020-08-28 11:19] LABS: INR 1.1 (<1.2); Partial Thromboplastin Time 22.4 sec (22.0-30.0); Prothrombin Time 11.3 sec (9.0-12.0)
[2020-08-28 11:38] LABS: Appearance,Urine Clear (Clear); Bilirubin,Urine Negative (Negative); Blood,Urine Negative (Negative); Color,Urine Yellow; Glucose,Urine (UA) Negative (Negative); Hyaline Casts,Urine 1 /lpf (0-2); Ketones,Urine 4+ (Negative); Leukocyte Esterase,Urine Trace (Negative); Mucus,Urine Many /hpf; Nitrite,Urine Negative (Negative); PH, Urine 6.5 (5.0-8.0); Protein,Urine 1+ (Negative); RBC,Urine 2 /hpf (0-5); Squamous Epithelial Cell,Urine <1 /hpf (0-4); WBC,Urine 3 /hpf (0-5)
[2020-08-28] MEDS ORDERED: SODIUM CHLORIDE 0.9% 500 ML 500 ML IV ONE (11:44)
--- NOTE | 2020-08-28 13:07 | CT ---
EXAMINATION TYPE: CT abdomen pelvis w con DATE OF EXAM: 08/28/2020 COMPARISON: 09/29/2015 INDICATION: Upper Abdominal pain, worse after eating DLP: 1417.4 mGycm, Automated exposure control for dose reduction was used. CONTRAST: 100 mL of Isovue 300. Study performed without Oral Contrast TECHNIQUE: Axial images were obtained from above the diaphragm to the pubic rami in the axial plane a t 5 mm thick sections. Reconstructed images are reviewed on the computer in the coronal plane. FINDINGS: Limited CT sections are obtained the lung bases. The lung bases are clear. CT ABDOMEN: Liver: There are scattered hypodensities within the liver likely on the basis of hepatic cysts. These are not well visualized on previous examination, Spleen: Normal Pancreas: Normal Adrenal glands: The adrenal glands are normal. Gallbladder: Surgically absent Kidneys: No masses are evident. No hydronephrosis is present. Small cortical renal cyst on the post erior right kidney. There is a larger cyst which is exophytic measuring 4.6 cm 7 Hounsfield units on the posterior lateral left mid kidney. Delayed images were obtained through the kidneys, which remai n unremarkable. Aorta: Vascular calcification is within the aorta. Inferior vena cava: Normal. CT PELVIS: Loops of bowel within the abdomen and pelvis are normal. There are multiple diverticuli scattered th roughout the sigmoid colon. No suspicious inflammatory changes are. This study is without oral cont rast limiting evaluation. Appendix: Not identified. No suspicious inflammatory changes are evident. Urinary bladder: Normal. Genitourinary structures: Prostate appears unremarkable Osseous structures: No suspicious lytic or sclerotic lesions. IMPRESSIONS: 1. Low-density lesions developing within the liver not as well-visualized as previously. These are n ot typical hepatic cysts. Some added density measuring up to 20 Hounsfield units. Recommend ultrasoun d for additional evaluation. MRI may be required for additional workup. 2. Renal cysts
[2020-08-28] MEDS ORDERED: MAG HYDROX/AL HYDROX/SIMETH 30 ML, HYOSCYAMINE ELIXIR 10 ML, LIDOCAINE VISCOUS 2% 10 ML PO STA ×3 (13:44)
[2020-08-28 14:33] VITALS: BP 122/78; PULSE 75; TEMP 98.3
== END 2020-08-28 14:33 | disposition home or self-care (01) ==
LOC: EC 10:06
DX: K76.9 Liver disease, unspecified (principal); R19.7 Diarrhea, unspecified; Z86.73 Personal history of transient ischemic attack (TIA), and cerebral infarction without residual deficits; Z90.49 Acquired absence of other specified parts of digestive tract
CPT/HCPCS: 36415; 93005; 80053; 82150; 83605; 83690; 83735; 84484; 85025; 85610; 85730; 81001; 87636; 74177; 99284; 96374; 96361 ×3; Q9967

== ENCOUNTER → 2020-09-25 | Outpatient (CLI) | payer MEDICARE ==
--- NOTE | 2020-09-25 08:43 | US ---
EXAMINATION TYPE: US abdomen complete DATE OF EXAM: 09/25/2020 COMPARISON: CT 08/28/2020 CLINICAL HISTORY: R93.5 Abnormal findings on diagnostic imaging of EXAM MEASUREMENTS: Liver Length: 13.5 cm Gallbladder Wall: Surgically absent CBD: 0.3 cm Spleen: 12.0 cm Right Kidney: 10.2 x 4.8 x 5.5 cm Left Kidney: 11.3 x 5.5 x 5.2 cm Pancreas: Not well visualized. Visualized portions wnl Liver: Increased attenuation, decreased visualization of vessels suggestive of fatty infiltrate. Mul tiple cysts visualized, largest left lobe measuring 1.3 x 1.0 x 1.2 cm CBD: wnl Spleen: wnl Right Kidney: No hydronephrosis. Cyst upper pole measuring 1.1 x 1.0 x 1.0 cm Left Kidney: No hydronephrosis. Cyst visualized measuring 3.6 x 3.0 x 3.5 cm Upper IVC: wnl Abd Aorta: Atherosclerotic changes visualized IMPRESSION: 1. Cholecystectomy. 2. The pancreas is not well visualized. 3. Diffuse fatty infiltration of the liver. Multiple hepatic cysts, largest in left lobe measuring 1. 3 cm. 4. Bilateral renal cysts, largest on left measuring 3.6 cm.
== END | disposition home or self-care (01) ==
LOC: RADUSWWP 07:25
PROVIDERS: ATTEND Family Medicine
DX: K76.0 Fatty (change of) liver, not elsewhere classified (principal); K76.89 Other specified diseases of liver; N28.1 Cyst of kidney, acquired; Z90.49 Acquired absence of other specified parts of digestive tract
CPT/HCPCS: 76700

== ENCOUNTER 2021-02-26 11:21 | Emergency (ER) | payer MEDICARE ==
[2021-02-26] MEDS ORDERED: SODIUM CHLORIDE 0.9% 1,000 ML IV ONE (13:25)
[2021-02-26] MEDS ORDERED: SODIUM CHLORIDE 0.9% 50 ML IVPB ONE (13:45)
[2021-02-26] MEDS ORDERED: BAMLANIVIMAB (EUA) 700 MG, ETESEVIMAB (EUA) 1,400 MG in SODIUM CHLORIDE 0.9% 50 ML IVPB ONE (13:45)
[2021-02-26] MEDS ORDERED: ACETAMINOPHEN TAB 500 MG TAB PO STA (13:48)
--- NOTE | 2021-02-26 13:50 | ED ---
General Adult HPI - General Chief complaint: Recheck/Abnormal Lab/Rx Stated complaint: Possible Dehydration,Wants COVID Test Source: patient, RN notes reviewed Mode of arrival: ambulatory Limitations: no limitations - History of Present Illness Initial comments: 70-year-old male presents emergency Department chief complaint of COVID-19 symptoms. Patient states started in symptoms on Monday. Patient states she's had does weakness, fevers chills, body aches. Patient states that he did not pass out no chest pain patient is not taking any recent Tylenol for his fever. Patient is unvaccinated. Patient states he did fall, struck his left knee, and left knee when weightbearing no other injuries no head injury - Related Data Home Medications Medication Instructions Recorded Confirmed Docusate [Colace] 100 mg PO DAILY 09/29/15 08/28/20 L.acidoph,Paracasei, B.lactis 1 cap PO DAILY 09/20/16 08/28/20 [Probiotic] Magnesium Gluconate [Magonate] 500 mg PO DAILY 02/07/18 08/28/20 Aspirin [Adult Low Dose Aspirin EC] 81 mg PO HS 08/28/20 08/28/20 Atorvastatin [Lipitor] 10 mg PO HS 08/28/20 08/28/20 Cholecalciferol [Vitamin D3 (25 25 mcg PO DAILY 08/28/20 08/28/20 Mcg = 1000 Iu)] Famotidine 20 mg PO DAILY 08/28/20 08/28/20 Flaxseed Oil 1,000 mg PO DAILY 08/28/20 08/28/20 Glucosam/Sid-Msm1/C/Simone/Bosw 1 tab PO BID 08/28/20 08/28/20 [Krgistvhlvd-Qoachtpduhw-SCG Tb] Lysine [l-Lysine] 500 mg PO DAILY 08/28/20 08/28/20 Multivitamins, Thera [Multivitamin 1 tab PO DAILY 08/28/20 08/28/20 (formulary)] Turmeric Root Extract [Turmeric] 500 mg PO DAILY 08/28/20 08/28/20 Previous Rx's Medication Instructions Recorded Famotidine [Pepcid] 20 mg PO BID 10 Days #20 tablet 08/28/20 Allergies Allergy/AdvReac Type Severity Reaction Status Date / Time omeprazole [From Prilosec] Allergy Rash/Hives Verified 02/26/21 12:05 omeprazole magnesium Allergy Rash/Hives Verified 02/26/21 12:05 [From Prilosec] amoxicillin [From Augmentin] AdvReac Diarrhea Verified 02/26/21 12:05 clavulanic acid AdvReac Diarrhea Verified 02/26/21 12:05 [From Augmentin] oseltamivir AdvReac Diarrhea Verified 02/26/21 12:05 Review of Systems ROS Statement: Those systems with pertinent positive or pertinent negative responses have been documented in the HPI. ROS Other: All systems not noted in ROS Statement are negative. Past Medical History Past Medical History: CVA/TIA, Prostate Disorder, Supraventricular Tachycardia (SVT) Additional Past Medical History / Comment(s): R numbness in back and hip area. In August 2016 TIA, did have some weakness at that time. States if he becomes dehydrated has some issues with SVT. Has not had any problems with SVT for 10 years or so. History of Any Multi-Drug Resistant Organisms: None Reported Past Surgical History: Ablation, Appendectomy, Cholecystectomy, Hernia Repair, Prostate Surgery Additional Past Surgical History / Comment(s): Leg surgery for broken leg. L knee arthroscopy. States had infections after two of his surgeries. Past Anesthesia/Blood Transfusion Reactions: No Reported Reaction Past Psychological History: No Psychological Hx Reported Smoking Status: Never smoker Past Alcohol Use History: None Reported Past Drug Use History: None Reported - Past Family History Mother Family Medical History: Dementia Father Family Medical History: Osteoarthritis (OA) Additional Family Medical History / Comment(s): hepatitis C, diverticulitis Brother(s) Family Medical History: Cancer, Coronary Artery Disease (CAD), Respiratory Disorder Additional Family Medical History / Comment(s): CABG, chemical pneumonia, glioblastoma General Exam Limitations: no limitations General appearance: alert, in no apparent distress Head exam: Present: atraumatic, normocephalic, normal inspection Eye exam: Present: normal appearance, PERRL, EOMI. Absent: scleral icterus, conjunctival injection, periorbital swelling ENT exam: Present: normal exam, normal oropharynx, mucous membranes moist Neck exam: Present: normal inspection, full ROM. Absent: tenderness, meningismus, lymphadenopathy Respiratory exam: Present: normal lung sounds bilaterally. Absent: respiratory distress, wheezes, rales, rhonchi, stridor Cardiovascular Exam: Present: regular rate, normal rhythm, normal heart sounds. Absent: systolic murmur, diastolic murmur, rubs, gallop, clicks Extremities exam: Present: other (Left knee tenderness, no swelling no erythema full range of motion) Neurological exam: Present: alert, oriented X3 Skin exam: Present: warm, dry, intact, normal color. Absent: rash Course Vital Signs 02/26/21 12:02 Temperature 101 F H Pulse Rate 77 Respiratory 18 Rate Blood Pressure 114/75 O2 Sat by Pulse 95 Oximetry Medical Decision Making - Lab Data Lab Results 02/26/21 Range/Units 12:05 Coronavirus (PCR) Detected A (Not Detectd) Disposition Clinical Impression: COVID-19, Left knee pain Disposition: HOME SELF-CARE Condition: Stable Instructions (If sedation given, give patient instructions): Coronavirus Disease 2019 (COVID-19) Is patient prescribed a controlled substance at d/c from ED?: No Referrals: Aki Jerez MD [Primary Care Provider] - 1-2 days Time of Disposition: 14:40
--- NOTE | 2021-02-26 14:38 | XR ---
EXAMINATION TYPE: XR knee complete LT DATE OF EXAM: 02/26/2021 COMPARISON: None HISTORY: 70-year-old male syncope yesterday, fall, pain TECHNIQUE: 3 views FINDINGS: There seems to be degenerative joint space narrowing in the medial compartment. Medial patellofemoral compartmental degenerative spurring. Small knee joint effusion. No acute fracture, subluxation, disl ocation. IMPRESSION: Suspect moderate underlying medial compartmental osteoarthrosis. Small knee joint effusion. No acute osseous abnormality seen. If pain persists, follow-up MRI.
[2021-02-26 14:40] LABS: Albumin 4.2 g/dL (3.5-5.0); Potassium 4.3 mmol/L (3.5-5.1); Total Bilirubin 0.5 mg/dL (0.2-1.3); Total Protein 7.5 g/dL (6.3-8.2)
[2021-02-26 14:42] LABS: Basophils % (A) 0 %; Eosinophils % (A) 0 %; HCT 44.5 % (39.0-53.0); HGB 15.5 gm/dL (13.0-17.5); Lymphocytes % (A) 18 %; MCH 30.2 pg (25.0-35.0); MCHC 34.9 g/dL (31.0-37.0); MCV 86.6 fL (80.0-100.0); Mean Platelet Volume 8.5; Monocytes # (A) 0.5 k/uL (0-1.0); Monocytes % (A) 9 %; Neutrophils % (A) 69 %; Platelet Count 141 k/uL (150-450); RBC 5.13 m/uL (4.30-5.90); RDW 13.8 % (11.5-15.5); WBC 5.8 k/uL (3.8-10.6)
[2021-02-26 17:05] VITALS: BP 122/77; PULSE 67; RESP 18; TEMP 99
== END 2021-02-26 16:55 | disposition home or self-care (01) ==
LOC: EC 11:21
DX: U07.1 COVID-19 (principal); M25.562 Pain in left knee; Z86.73 Personal history of transient ischemic attack (TIA), and cerebral infarction without residual deficits; Z88.1 Allergy status to other antibiotic agents; Z79.82 Long term (current) use of aspirin; Z88.8 Allergy status to other drugs, medicaments and biological substances
CPT/HCPCS: 36415; 80053; 85025; 87635; 73562; 99285; 96365; 96361; J3490

== ENCOUNTER → 2022-03-02 | Outpatient (CLI) | payer MEDICARE ==
--- NOTE | 2022-03-02 15:36 | NM ---
EXAMINATION TYPE: NM stress cardiolite complete DATE OF EXAM: 03/02/2022 COMPARISON: NONE HISTORY: Precordial chest pain and abnormal EKG TECHNIQUE: After the intravenous administration of 10 mCi Tc 99m Sestamibi - Rest images obtained 65 minutes post injection. The patient exercised using a TAMARA protocol and 1 minute prior to peak ex ercise was injected with 25.7 mCi Tc 99m Sestamibi - Stress images obtained 5 minutes post injection. FINDINGS: Targeted heart rate was achieved during performance of the study. Review of stress and rest SPECT naye ges demonstrates decreased perfusion inferior wall following stress imaging. Stress induced ischemia is not excluded. There is also decreased perfusion involving the lateral wall. Gated analysis shows n ormal wall motion with an estimated left ventricular ejection fraction of 66 %. IMPRESSION: Stress-induced ischemia is not excluded as noted above. Correlate clinically.
--- NOTE | 2022-03-02 19:57 | CA ---
Exercise Stress Test Report Name: Lavell No Exam Date: 03/02/2022 10:01 Exam Location: [place] [facility] Ht (in): 71 Wt (lb): 190 BSA: 2.06 Ordering Phys: Aki Jerez MD Referring Phys: Aki Jerez MD Technologist: Stephen Larry Age: 71 Gender: M : 1950 Procedure CPT: Indications: I25.10 ATHSCL HEART DISEASE OF [place] CORONARY ART ICD-10 Codes: Patient History: HX OF TIA, ELEVATED CHOLESTEROL LEVELS, FAMILY HX OF HEART DISEASE Medications: ATORVASTATIN,,,,, Meds past 24 hrs: Pretest Chest Pain: STRESS TEST Jaspal Protocol Exercise Duration (min:sec): 07:[address] Depressions (mm): Angina Score: Umana Score: Resting HR (bpm): 84 Peak HR (bpm): 139 Resting BP (mmHg): 153 / 90 Peak BP (mmHg): 192 / 89 MPHR: 151 Target HR: 128 % MPHR: 92 METS: 8.9 Total Dose: Peak Dose: Atropine: Double Product: 14290 BP Response: Stress Termination: TARGET HR REACHED/MAX EXERTION Stress Symptoms: NO SYMPTOMS Stress Summary: ECG ANALYSIS Resting ECG: Stress ECG: CONCLUSIONS Excellent exercise tolerance Normal EKG in response to exercise Please follow-up on the Cardiolite portion Dr. Timothy Villalba MD (Electronically Signed) Final Date: 02 March 2022 19:56
== END | disposition home or self-care (01) ==
LOC: RADNMMAIN 07:41
PROVIDERS: ATTEND Internal Medicine
DX: I25.10 Atherosclerotic heart disease of native coronary artery without angina pectoris (principal)
CPT/HCPCS: 93017; 78452; A9500

== ENCOUNTER 2022-07-07 08:37 | Day surgery (SDC) | payer MEDICARE ==
[~2022-07-07 08:37] MED LIST changes: +ALPRAZolam 0.25 MG TAB PO PRN; +ALPRAZolam 0.5 MG TAB PO PRN; +ASPIRIN 325 MG TAB PO STA; +ATORVASTATIN 80 MG TAB PO STA; -DEXAMETHASONE SOD PHOSPHATE 10 MG/ML 1 ML VIAL IV ONE; +HEPARIN SODIUM,PORCINE 10,000 UNIT in SODIUM CHLORIDE 0.9% 1,000 ML IRRIGATION PRN; +HEPARIN SODIUM,PORCINE 2,500 UNIT in SODIUM CHLORIDE 0.9% 250 ML IRRIGATION PRN; -HEPARIN SODIUM,PORCINE 5,000 UNIT/ML 1 ML VIAL SQ ONE; -HYDROmorphone 0.5 MG/0.5 ML SYRINGE IVP PRN; -LIDOCAINE 1% 20 ML VIAL (10MG/ML) FOR IV START INTRADERMA PRN; -MIDAZOLAM 2 MG/2 ML VIAL IV PRN; +NITROGLYCERIN SL TABS 0.4 MG TAB SUBLINGUAL PRN; -ONDANSETRON 4 MG/2 ML VIAL IVP ONE; -SCOPOLAMINE 1.5MG/72HR PATCH TRANSDERM ONE; +SODIUM CHLORIDE 0.9% 1,000 ML in EMPTY BAG 1 BAG IV SCH; -ceFAZolin IN SWFI 2 GM/20 ML SYRINGE IVP ONE
[2022-07-07] MEDS ORDERED: SODIUM CHLORIDE 0.9% 1,000 ML IV ONE (08:52)
[2022-07-07 08:59] VITALS: RESP 16; TEMP 98.2
[2022-07-07] MEDS ORDERED: VERAPAMIL 2.5 MG/ML 2 ML AMP ONE (10:42)
[2022-07-07] MEDS ORDERED: fentaNYL (PF) 50 MCG/ML 2 ML AMP ONE (10:45)
[2022-07-07] MEDS ORDERED: HEPARIN SODIUM 1,000 UN/ML (10ML VL) ONE (10:45)
[2022-07-07] MEDS ORDERED: fentaNYL (PF) 50 MCG/1 ML VIAL IV ONE (10:57)
[2022-07-07] MEDS ORDERED: HEPARIN SODIUM 1,000 UN/ML (10ML VL) IV ONE (10:58)
[2022-07-07] MEDS ORDERED: MIDAZOLAM 2 MG/2 ML VIAL IV ONE ×2 (10:58)
[2022-07-07] MEDS ORDERED: LIDOCAINE 1% INJ 10MG/ML (5 ML VIAL-PF) SQ ONE (10:59)
[2022-07-07] MEDS ORDERED: VERAPAMIL SYRINGE (5 MG/10 ML) INTRAARTER ONE (10:59)
[2022-07-07] MEDS ORDERED: fentaNYL (PF) 50 MCG/ML 2 ML AMP IV ONE (11:00)
[2022-07-07] MEDS ORDERED: IOPAMIDOL-370 125ML BTL INJ ONE (11:04)
[2022-07-07] MEDS ORDERED: RX INFO: IV CONTRAST WAS GIVEN 1 EACH MISC MISCELLANE PRN (11:11)
[2022-07-07] MEDS ORDERED: SODIUM CHLORIDE 0.9% 1,000 ML IV SCH (11:15)
--- NOTE | 2022-07-07 11:16 | P.PCN ---
Date of Procedure: 07/07/22 Operative Findings: CARDIAC CATHETERIZATION PERFORMING PHYSICIAN: Timothy Villalba MD, RPVI PROCEDURE PERFORMED: 1. Selective right and left coronary angiogram INDICATION: This is a 72-year-old gentleman with CAD documented by CT calcium score as well as hypertension and dyslipidemia was seen in the office for further evaluation of abnormal myocardial perfusion imaging stress test was high risk features. The myocardial perfusion imaging stress test showed multiple area of ischemia involving multiple territories in the coronary arteries. It was concerning for left main or triple vessel. In the light of that he was brought today to undergo coronary angiogram COMPLICATION: None APPROACH: Right radial artery LEVEL OF SEDATION: Moderate with a sedation length of 10 minutes PROCEDURE DESCRIPTION: After obtaining an informed consent, the patient was brought to cardiac cardiac cath lab manager. Local anesthesia was performed using lidocaine subcutaneously. The right radial artery was cannulated using Seldinger technique, the guidewire passed easily, following that we advanced a 5-Setswana sheath dilator assembly, the wire and dilator were removed and sheath was flushed. Following that, 2 mg of verapamil along with 5000 unit heparin were given. Selective right and left coronary angiogram using a 6-Setswana JR4 and JL 3.5 catheters. The procedure was completed there was no complication. SELECTIVE CORONARY ANGIOGRAM: The right coronary artery: Large-caliber vessel and a dominant vessel. The RCA is angiographically normal. Distally bifurcates into PDA and PLV branches both appeared to be angiogra phically normal Left main: Has mild disease only. Bifurcates into an LCx and LAD The left circumflex: Large caliber vessel and nondominant vessel. The LCx system is normal. It gives rises into an OM1 which appeared to be angiographically normal The left anterior descending artery: The LAD in the midportion has mild disease appeared to be in the range of 30% after the bifurcation of the large diagonal branch. Otherwise LAD proximally and distally appears to be angiographically normal CONCLUSION: 1. Mild nonobstructive coronary artery disease POSTPROCEDURE MANAGEMENT: Medical treatment and follow-up with the patient
[2022-07-07 15:48] VITALS: BP 118/61; PULSE 64
== END 2022-07-07 15:00 | disposition home or self-care (01) ==
LOC: CATHCVL 08:37
PROVIDERS: ATTEND Internal Medicine Interventional Cardiology
DX: I25.10 Atherosclerotic heart disease of native coronary artery without angina pectoris (principal)
CPT/HCPCS: 93454; C1769; C1894; J2250; J2001; J3010 ×2; J1644; Q9967

== ENCOUNTER 2022-08-16 08:38 | Day surgery (SDC) | payer MEDICARE ==
[~2022-08-16 08:38] MED LIST changes: -ALPRAZolam 0.25 MG TAB PO PRN; -ALPRAZolam 0.5 MG TAB PO PRN; -ASPIRIN 325 MG TAB PO STA; -ATORVASTATIN 80 MG TAB PO STA; -HEPARIN SODIUM,PORCINE 10,000 UNIT in SODIUM CHLORIDE 0.9% 1,000 ML IRRIGATION PRN; -HEPARIN SODIUM,PORCINE 2,500 UNIT in SODIUM CHLORIDE 0.9% 250 ML IRRIGATION PRN; +LACTATED RINGERS 1,000 ML IV SCH; -NITROGLYCERIN SL TABS 0.4 MG TAB SUBLINGUAL PRN; -SODIUM CHLORIDE 0.9% 1,000 ML in EMPTY BAG 1 BAG IV SCH
[2022-08-16 09:21] VITALS: TEMP 96.9
[2022-08-16] MEDS ORDERED: LIDOCAINE 2% INJ 20 MG/ML (2 ML VIAL) ONE (09:44)
[2022-08-16] MEDS ORDERED: PROPOFOL 10 MG/ML 20 ML VIAL IV ONE (09:44)
--- NOTE | 2022-08-16 09:55 | P.GSHP ---
History of Present Illness H&P Date: 08/16/22 Chief Complaint: GERD, screening 72-year-old male here for upper and lower endoscopy. Patient with history of chronic reflux. Takes antiacids twice daily. No significant bowel complaints. Mild left lower quadrant pain when he is constipated. He says occurs times per year. Last colonoscopy 10 years ago. He believes that was normal. Past Medical History Past Medical History: CVA/TIA, GERD/Reflux, Prostate Disorder, Supraventricular Tachycardia (SVT) Additional Past Medical History / Comment(s): R numbness in back and hip area. In August 2016 TIA, did have some weakness at that time. States if he becomes dehydrated has some issues with SVT. Has not had any problems with SVT for 10 years or so. History of Any Multi-Drug Resistant Organisms: None Reported Past Surgical History: Appendectomy, Cardiac Ablation, Cholecystectomy, Heart Catheterization, Hernia Repair, Prostate Surgery Additional Past Surgical History / Comment(s): Leg surgery for broken leg. L knee arthroscopy. States had infections after two of his surgeries. recent cardiac cath. Past Anesthesia/Blood Transfusion Reactions: No Reported Reaction Smoking Status: Never smoker - Past Family History Mother Family Medical History: Dementia Father Family Medical History: Osteoarthritis (OA) Additional Family Medical History / Comment(s): hepatitis C, diverticulitis Brother(s) Family Medical History: Cancer, Coronary Artery Disease (CAD), Respiratory Disorder Additional Family Medical History / Comment(s): CABG, chemical pneumonia, gliobl astoma Medications and Allergies Home Medications Medication Instructions Recorded Confirmed Type Docusate [Colace] 100 mg PO DAILY 09/29/15 08/12/22 History L.acidoph,Paracasei, B.lactis 1 cap PO DAILY 09/20/16 08/12/22 History [Probiotic] Magnesium Gluconate [Magonate] 500 mg PO DAILY 02/07/18 08/12/22 History Aspirin [Adult Low Dose Aspirin EC] 81 mg PO HS 08/28/20 08/12/22 History Cholecalciferol [Vitamin D3 (25 25 mcg PO DAILY 08/28/20 08/12/22 History Mcg = 1000 Iu)] Famotidine [Pepcid] 20 mg PO BID 10 Days #20 tablet 08/28/20 08/12/22 Rx Glucosam/Sid-Msm1/C/Simone/Bosw 1 tab PO BID 08/28/20 08/12/22 History [Zqftsjkwzne-Xgpndtejxue-ULQ Tb] Lysine [l-Lysine] 500 mg PO DAILY PRN 08/28/20 08/12/22 History Turmeric Root Extract [Turmeric] 500 mg PO DAILY 08/28/20 08/12/22 History flaxseed oiL [Flaxseed Oil] 1,000 mg PO DAILY 08/28/20 08/12/22 History Cetirizine HCl 10 mg PO DAILY PRN 07/01/22 08/12/22 History Triamcinolone 0.1% Cream [Kenalog 1 applic TOPICAL DAILY PRN 07/01/22 08/12/22 History 0.1% Cream] Multienzymes 1 tab PO DAILY 08/12/22 08/12/22 History Allergies Allergy/AdvReac Type Severity Reaction Status Date / Time omeprazole [From Prilosec] Allergy Rash/Hives Verified 08/16/22 09:08 omeprazole magnesium Allergy Rash/Hives Verified 08/16/22 09:08 [From Prilosec] amoxicillin [From Augmentin] AdvReac Diarrhea Verified 08/16/22 09:08 clavulanic acid AdvReac Diarrhea Verified 08/16/22 09:08 [From Augmentin] oseltamivir AdvReac Diarrhea Verified 08/16/22 09:08 Surgical - Exam Vital Signs Temp Pulse Resp BP Pulse Ox 96.9 F L 80 16 167/81 96 08/16/22 09:19 08/16/22 09:19 08/16/22 09:19 08/16/22 09:19 08/16/22 09:19 Physical exam: General: Well-developed, well-nourished HEENT: Normocephalic, sclerae nonicteric Abdomen: Nontender, nondistended Extremities: No edema Neuro: Alert and oriented Assessment and Plan (1) Colon cancer screening Narrative/Plan: Will proceed with upper and lower endoscopy Current Visit: Yes Status: Acute Code(s): Z12.11 - ENCOUNTER FOR SCREENING FOR MALIGNANT NEOPLASM OF COLON SNOMED Code(s): 906116369
--- NOTE | 2022-08-16 10:16 | P.PCN ---
Date of Procedure: 08/16/22 Procedure(s) Performed: PREOPERATIVE DIAGNOSIS: GERD, screening POSTOPERATIVE DIAGNOSIS: Mild gastritis, small hiatal hernia, mild distal esophagitis, colon polyp, diverticulosis PROCEDURE: 1. EGD with biopsy 2. Colonoscopy with snare polypectomy ANESTHESIA: [facility] [place] SURGEON: Anshu Lane M.D. SPECIMENS: Antrum, distal esophagus, colon polyp ENDOSCOPIC PROCEDURE: The patient was on the endoscopy table in the left decubitus position. The Olympus gastroscope was inserted into the oropharynx and passed under direct visualization to the region of the third portion of the duodenum. From that point the scope was slowly withdrawn inspecting all surfaces carefully. There were no neoplastic inflammatory or polypoid lesions throughout the duodenum. The pylorus was widely patent. The stomach was carefully inspected. There was mild gastritis present. A biopsy of the antrum took place to rule out H. pylori. Retroflexion revealed a small sliding hiatal hernia. The GE junction was present 1 cm above the diaphragmatic hiatus. At the distal esophagus there were 2-3 small linear erosions measuring less than 1 cm in length. These were non-circumferential. The remainder the esophagus appear normal. The patient was kept on the endoscopy table in the left decubitus position. The Olympus colonoscope was inserted into the anus and passed under direct visualization to the base of the cecum. The appendiceal orifice was visualized. From that point the scope was slowly withdrawn inspecting all surfaces carefully. There were no neoplastic inflammatory or polypoid lesions throughout the cecum, ascending, transverse, and descending colon. In the sigmoid a small polyp that was removed using the snare cautery technique. The remainder of the sigmoid and rectum appeared normal. There was moderate left-sided diverticulosis. Digital rectal examination was normal. The patient was taken to the recovery room in stable condition per anesthesia guidelines. RECOMMENDATIONS: Await biopsy results. Repeat EGD and colonoscopy in 5-10 years based on pathology findings.
[2022-08-16 10:42] VITALS: BP 113/75; PULSE 68; RESP 18
== END 2022-08-16 11:05 | disposition home or self-care (01) ==
LOC: ORWHC2ENDO 08:38
PROVIDERS: ATTEND Surgery
DX: Z12.11 Encounter for screening for malignant neoplasm of colon (principal); D12.5 Benign neoplasm of sigmoid colon; K57.30 Diverticulosis of large intestine without perforation or abscess without bleeding; K29.50 Unspecified chronic gastritis without bleeding; K31.A0 Gastric intestinal metaplasia, unspecified; B96.81 Helicobacter pylori [H. pylori] as the cause of diseases classified elsewhere; K21.9 Gastro-esophageal reflux disease without esophagitis; Z86.73 Personal history of transient ischemic attack (TIA), and cerebral infarction without residual deficits; I47.1 Supraventricular tachycardia; N42.9 Disorder of prostate, unspecified; Z90.49 Acquired absence of other specified parts of digestive tract; Z98.890 Other specified postprocedural states; Z81.8 Family history of other mental and behavioral disorders; Z82.61 Family history of arthritis; Z83.79 Family history of other diseases of the digestive system; Z82.49 Family history of ischemic heart disease and other diseases of the circulatory system; Z83.6 Family history of other diseases of the respiratory system; Z79.82 Long term (current) use of aspirin; Z79.899 Other long term (current) drug therapy; Z88.8 Allergy status to other drugs, medicaments and biological substances; Z88.0 Allergy status to penicillin; Z88.1 Allergy status to other antibiotic agents
CPT/HCPCS: 88305; 88342; 45385; 43239; J2704; J2001

== ENCOUNTER → 2023-04-28 | Outpatient (CLI) | payer MEDICARE | END | disposition home or self-care (01) | LOC: LABWHC1 09:50 | PROVIDERS: ATTEND Internal Medicine | DX: Z53.9 Procedure and treatment not carried out, unspecified reason (principal) ==

== ENCOUNTER → 2023-08-25 | Outpatient (CLI) | payer MEDICARE ==
[2023-08-25 08:58] LABS: African American GFR (CKD) >90 (>60 ml/min/1.73 sqM); Blood Urea Nitrogen 16 mg/dL (9-20); Non-African American GFR(CKD) 83 (>60 ml/min/1.73 sqM)
--- NOTE | 2023-08-26 22:13 | CT ---
EXAMINATION TYPE: CT abdomen pelvis w con DATE OF EXAM: 08/25/2023 COMPARISON: 08/28/2020 INDICATION: lower abdominal pain x2 months DLP: 1395 mGycm, Automated exposure control for dose reduction was used. CONTRAST: 100 mL of Isovue 300. Study performed with Oral Contrast TECHNIQUE: Axial images were obtained from above the diaphragm to the pubic rami in the axial plane a t 5 mm thick sections. Reconstructed images are reviewed on the computer in the coronal plane. FINDINGS: Limited CT sections are obtained the lung bases. The lung bases are clear. Small hiatal hernia is p resent. CT ABDOMEN: Liver: Multiple cysts are within the liver. Spleen: Normal Pancreas: Normal Adrenal glands: The adrenal glands are normal. Gallbladder: Surgically absent r Kidneys: No masses are evident. No hydronephrosis is present. There is a 2.1 cm exophytic cyst at s uperior pole right kidney. There is a posterior lateral left mid kidney cyst measuring 2.5 cm. Delay ed images were obtained through the kidneys, which remain unremarkable. Aorta: Vascular calcification is within the aorta. Inferior vena cava: Normal. CT PELVIS: Loops of bowel within the abdomen and pelvis are normal. Scattered diverticula within the descending colon through the sigmoid colon. Some thickening through the sigmoid colon is not excluded. Consider mild underlying diverticulitis. Underlying mass is not excluded. Follow-up is recommended. No adjacen t inflammatory changes, abscess formation, or free air is evident. There are loops of bowel which are incompletely distended or lack oral contrast limiting their evaluation. Appendix: Normal as visualized. Urinary bladder: Normal. Genitourinary structures: Prostate appears unremarkable Osseous structures: No suspicious lytic or sclerotic lesions. IMPRESSION: 1. Diverticulosis without acute diverticulitis. Some thickening in this region could suggest some mi nimal diverticulitis or colitis. Underlying mass is not excluded and follow-up is recommended. 2. Renal and hepatic cysts.
== END | disposition home or self-care (01) ==
LOC: RADCTMAIN 07:58
PROVIDERS: ATTEND Internal Medicine
DX: K57.30 Diverticulosis of large intestine without perforation or abscess without bleeding (principal); K57.32 Diverticulitis of large intestine without perforation or abscess without bleeding; K76.89 Other specified diseases of liver; Z90.49 Acquired absence of other specified parts of digestive tract
CPT/HCPCS: 82565; 84520; 74177; 36415; Q9967

== ENCOUNTER → 2023-10-18 | Outpatient (CLI) | payer MEDICARE ==
--- NOTE | 2023-10-18 09:16 | XR ---
EXAMINATION TYPE: XR KUB DATE OF EXAM: 10/18/2023 8:25 AM CLINICAL INDICATION:Male, 73 years old with history of N20.0 CALCULUS OF KIDNEY; [facility] COMPARISON: None. TECHNIQUE: One radiographic view of the abdomen was obtained. FINDINGS: The bowel gas pattern is nonspecific without dilated loops of small or large bowel. There i s no evidence for organomegaly or pneumoperitoneum. The osseous structures are intact. No abnormal calcifications are present. Fecal material and gas are demonstrated throughout the colon and rectum. Joint space narrowing osteophyte formation of bilateral hips. Right upper quadrant cholecystectomy cl ips. Multilevel degeneration changes spine. IMPRESSION: Nonspecific bowel gas pattern without radiographic evidence for acute process.
== END | disposition home or self-care (01) ==
LOC: RADXRMAIN 08:07
PROVIDERS: ATTEND Urology
DX: N20.0 Calculus of kidney (principal)
CPT/HCPCS: 74018

== ENCOUNTER 2023-10-25 05:50 | Day surgery (SDC) | payer MEDICARE ==
--- NOTE | 2023-10-24 21:11 | P.GSHP ---
History of Present Illness H&P Date: 10/24/23 73 yo male known to me for bno, large prostate. He is sp holap at [facility] for this. there was a tiny amount of cancer present in the prostate.. Recently he has developed severe left flank and llq pain. He had a ct scan identifying a 4x7 distal ureteral stone. I saw him in [place] and he was still having pain. I did a kub and the stone was still present. He was given treatment options. He comes for left ureteroscopy and laser lithotripsy - Constitutional Constitutional: Denies chills, Denies fever - EENT Eyes: denies blurred vision, denies pain Ears, nose, mouth and throat: Denies headache, Denies sore throat - Cardiovascular Cardiovascular: Denies chest pain, Denies shortness of breath - Respiratory Respiratory: Denies cough, Denies 7 - Gastrointestinal Gastrointestinal: Denies abdominal pain, Denies diarrhea, Denies nausea, Denies vomiting - Genitourinary (Female) Genitourinary: Denies dysuria, Denies hematuria - Genitourinary (Male) Genitourinary: Denies dysuria, Denies hematuria - Musculoskeletal Musculoskeletal: Denies myalgias - Integumentary Integumentary: Denies pruritus, Denies rash - Neurological Neurological: Denies numbness, Denies weakness - Psychiatric Psychiatric: Denies anxiety, Denies depression - Endocrine Endocrine: Denies fatigue, Denies weight change Past Medical History Past Medical History: CVA/TIA, GERD/Reflux, Prostate Disorder, Supraventricular Tachycardia (SVT) Additional Past Medical History / Comment(s): Numbness in Rt. back and hip area - "bulging lumbar disc", 2017 TIA, did have some weakness at that time, none currently, States if he becomes dehydrated has some issues with SVT. Has not had any problems with SVT for 10 years or so, ablation did not work - 2006, BPH History of Any Multi-Drug Resistant Organisms: None Reported Past Surgical History: Ablation, Appendectomy, Cholecystectomy, Hernia Repair, Prostate Surgery Additional Past Surgical History / Comment(s): ORIF Lt. leg 1970, Lt. knee arthroscopy, States had infections after two of his surgeries - skin rashes, HoLEP - holmium laser enucleation of prostate at [facility] Past Anesthesia/Blood Transfusion Reactions: No Reported Reaction Smoking Status: Former smoker - Past Family History Mother Family Medical History: Dementia Father Family Medical History: Osteoarthritis (OA) Additional Family Medical History / Comment(s): hepatitis C, diverticulitis Brother(s) Family Medical History: Cancer, Coronary Artery Disease (CAD), Respiratory Disorder Additional Family Medical History / Comment(s): CABG, chemical pneumonia, glioblastoma Medications and Allergies Home Medications Medication Instructions Recorded Confirmed Type Docusate [Colace] 100 mg PO DAILY PRN 09/29/15 10/23/23 History L.acidoph,Paracasei, B.lactis 1 cap PO DAILY 09/20/16 10/23/23 History [Probiotic] Magnesium Gluconate [Magonate] 500 mg PO DAILY 02/07/18 10/23/23 History Aspirin [Adult Low Dose Aspirin EC] 81 mg PO HS 08/28/20 10/23/23 History Cholecalciferol [Vitamin D3 (25 25 mcg PO DAILY PRN 08/28/20 10/23/23 History Mcg = 1000 Iu)] Glucosam/Sid-Msm1/C/Simone/Bosw 1 tab PO BID 08/28/20 10/23/23 History [Xorpsfbapty-Tlcuyfvrbzf-PHI Tb] Turmeric Root Extract [Turmeric] 500 mg PO DAILY 08/28/20 10/23/23 History flaxseed oiL [Flaxseed Oil] 1,000 mg PO DAILY 08/28/20 10/23/23 History Multienzymes 1 tab PO DAILY 08/12/22 10/23/23 History Ketorolac [Toradol] 10 mg PO Q8HR PRN #15 tab 09/06/23 10/23/23 Rx Tamsulosin [Flomax] 0.4 mg PO DAILY #7 cap 09/06/23 10/23/23 Rx Famotidine [Pepcid] 20 mg PO QAM 10/23/23 10/23/23 History Allergies Allergy/AdvReac Type Severity Reaction Status Date / Time omeprazole [From Prilosec] Allergy Rash/Hives Verified 10/23/23 10:01 omeprazole magnesium Allergy Rash/Hives Verified 10/23/23 10:01 [From Prilosec] amoxicillin [From Augmentin] AdvReac Diarrhea Verified 10/23/23 10:01 clavulanic acid AdvReac Diarrhea Verified 10/23/23 10:01 [From Augmentin] oseltamivir AdvReac Diarrhea Verified 10/23/23 10:01 Penicillins AdvReac Diarrhea Verified 10/23/23 10:01 Surgical - Exam - General well developed, well nourished, no distress - Eyes normal ocular movement, no icteric - ENT no hearing loss, no congestion - Neck no masses, trachea midline - Respiratory normal respiratory effort, clear to auscultation - Abdomen Abdomen: soft, non tender, no guarding, no rigid, no rebound - Integumentary no rash, no abnormal pigmentation - Neurologic no disoriented, no combative - Psychiatric oriented to time, oriented to person, oriented to place, speech is normal, memory intact Results - Imaging Abdominal x-ray: report reviewed, image reviewed CT scan - abdomen: report reviewed, image reviewed CT scan - pelvis: report reviewed, image reviewed Assessment and Plan Assessment: Impression: left ureteral stone Plan: left ureteroscopy with laser lithotripsy
[2023-10-25] MEDS: LACTATED RINGERS 1,000 ML IV SCH (06:43)
[2023-10-25] MEDS: ONDANSETRON 4 MG/2 ML VIAL IVP STA (06:44)
[2023-10-25] MEDS: DEXAMETHASONE SOD PHOSPHATE 4 MG/ML 1 ML VIAL IVP STA (06:44)
[2023-10-25] MEDS: IV FLUID CONTINUATION 1,000 ML IV ONE (06:47)
[2023-10-25] MEDS ORDERED: MIDAZOLAM 2 MG/2 ML VIAL ONE (07:29)
[2023-10-25] MEDS ORDERED: fentaNYL (PF) 50 MCG/ML 2 ML AMP ONE (07:29)
[2023-10-25] MEDS ORDERED: LIDOCAINE 1% INJ 10MG/ML (20 ML MDV) ONE (07:29)
[2023-10-25] MEDS ORDERED: PROPOFOL 10 MG/ML 20 ML VIAL IV ONE (07:29)
--- NOTE | 2023-10-25 07:46 | XR ---
EXAMINATION TYPE: XR KUB DATE OF EXAM: 10/25/2023 Comparison: 10/18/[address] 09/06/2023 Clinical History: 73-year-old male N20.1 URETERAL STONE Findings: Cholecystectomy clips. Nonobstructive bowel gas pattern. A couple round calcifications on either side in the lower pelvis. 5 mm calcification on the left most likely corresponds to the patient's distal ureteral stone. Impression: Possible persistent 5 mm distal left ureteral stone.
[2023-10-25] MEDS: IOPAMIDOL-370 100ML BTL MISCELLANE ONE (08:02)
--- NOTE | 2023-10-25 08:33 | P.OP ---
Date of Procedure: 10/25/23 Preoperative Diagnosis: left ureteral stone Postoperative Diagnosis: same Procedure(s) Performed: cystoscopy, dilation of left ureteral orifice, left ureteroscopy with laser lithotripsy and stone basketing, placement of [id number] stent Anesthesia: BRAEDEN Surgeon: Joe Shaver Estimated Blood Loss (ml): 0 Pathology: other (stone) Condition: stable Disposition: PACU Indications for Procedure: the patient is 73. His a 7 x 4 distal left ureteral stone causing persistent discomfort he comes for ureteroscopy and laser lithotripsy Description of Procedure: patient brought operating suite. Given general anesthesia. The stone is seen under fluoroscopy in the pelvis on the left side. Cystoscopy Foroblique lens and 21-Mauritian sheath identifies a normal anterior urethra. He has had previous prostate surgery. The prostate is wide open. The left renal orifice is identified and is tiny. There is trabeculation throughout the bladder wall. I passed an 035 wire through the distal ureteral orifice with difficulty on the left side. I then over the wire pass a 5-15-Mauritian dilating balloon and the ureteral orifice is dilated to 15-Mauritian. I then pass a semirigid scope up to the stone. It is old, calcium and hard. With 12 W of energy the stone was broken into 2 pieces and basketed. Due to the dilation of the orifice and the edema from the stone the stent will be placed. The wires backloaded onto the cystoscope. Over the wires passed a 6 x 26 stent the coils in the renal pelvis and in the bladder. It is attached to a string so that it can be removed in the office early next week. He is awakened and will be discharged home upon recovery.
[2023-10-25 08:37] VITALS: TEMP 97
[2023-10-25 08:45] VITALS: RESP 16
[2023-10-25 09:07] VITALS: BP 132/78; PULSE 77
--- NOTE | 2023-10-25 10:01 | FL ---
EXAMINATION TYPE: FL guidance operating room DATE OF EXAM: 10/25/2023 HISTORY: Fluoroscopy time Total dose area product (DAP) in uGy*m?, mGy*cm? (or similar): 0.57384 IMPRESSION: 1. Fluoroscopy time.
== END 2023-10-25 09:49 | disposition home or self-care (01) ==
LOC: OR 05:50
PROVIDERS: ATTEND Urology
DX: N20.1 Calculus of ureter (principal); K21.9 Gastro-esophageal reflux disease without esophagitis; Z86.73 Personal history of transient ischemic attack (TIA), and cerebral infarction without residual deficits; Z87.891 Personal history of nicotine dependence; Z88.0 Allergy status to penicillin; Z88.1 Allergy status to other antibiotic agents; Z90.49 Acquired absence of other specified parts of digestive tract; Z98.890 Other specified postprocedural states; Z79.899 Other long term (current) drug therapy
CPT/HCPCS: 52356; 82365; 74018; C2625; C1758 ×2; C1769; J2250; J1100; J0690; J2405; J2001; J3010; J2704; Q9967

== ENCOUNTER → 2024-03-18 | Outpatient (CLI) | payer MEDICARE ==
[2024-03-18 16:18] LABS: Basophils # (A) 0.03 X 10*3/uL (0.00-0.10); Basophils % (A) 0.4 %; Eosinophils # (A) 0.06 X 10*3/uL (0.04-0.35); Eosinophils % (A) 0.9 %; HCT 46.5 % (39.6-50.0); HGB 15.2 g/dL (13.0-17.0); Lymphocytes # (A) 1.25 X 10*3/uL (0.90-5.00); MCH 29.3 pg (27.0-32.0); MCHC 32.7 g/dL (32.0-37.0); MCV 89.8 FL (80.0-97.0); Mean Platelet Volume 10.2 FL (9.5-12.2); Monocytes # (A) 0.65 X 10*3/uL (0.20-1.00); Monocytes % (A) 9.3 %; NRBC Per 100 WBC 0 X 10*3/uL (0.00-0.01); Neutrophils # (A) 4.93 X 10*3/uL (1.80-7.70); Neutrophils % (A) 70.8 %; Platelet Count 229 X 10*3/uL (140-440); RBC 5.18 X 10*6/uL (4.40-5.60); RDW 13.9 % (11.5-14.5); WBC 6.96 X 10*3/uL (4.50-10.00)
[2024-03-18 16:46] LABS: ALT 22 U/L (10-49); AST 20 U/L (14-35); Albumin 4.1 g/dL (3.8-4.9); Albumin/Globulin Ratio 1.46 Ratio (1.60-3.17); Alkaline Phosphatase 59 U/L (41-126); BUN/Creat Ratio 13.91 Ratio (12.00-20.00); Blood Urea Nitrogen 15.3 mg/dL (9.0-27.0); Calcium 9.3 mg/dL (8.7-10.3); Carbon Dioxide 27.4 mmol/L (21.6-31.8); Chloride 104 mmol/L (96-109); Chol/HDL Ratio 2.61 Ratio; Creatine Kinase 32 U/L (35-257); Globulin 2.8 g/dL (1.6-3.3); Glucose 91 mg/dL (70-110); LDL Cholesterol,Calculated 82.3 mg/dL (0.0-131.0); Potassium 4.5 mmol/L (3.5-5.5); Prostate Specific Antigen 0.82 ng/mL (0.000-6.500); Sodium 141 mmol/L (135-145); Total Bilirubin 0.4 mg/dL (0.3-1.2); Total Protein 6.9 g/dL (6.2-8.2); VLDL Calculation 13.44 mg/dL (5.00-40.00)
== END | disposition home or self-care (01) ==
LOC: LABWHC1 08:56
PROVIDERS: ATTEND Internal Medicine
DX: E78.2 Mixed hyperlipidemia (principal); E55.9 Vitamin D deficiency, unspecified; K21.00 Gastro-esophageal reflux disease with esophagitis, without bleeding; C61 Malignant neoplasm of prostate
CPT/HCPCS: 36415; 80053; 80061; 82306; 82550; 83036; 83735; 84153; 84443; 85025